=== PATIENT | male | born 1945 | race Caucasian/White ===

== ENCOUNTER 2022-05-19 09:05 | Inpatient (IN) | payer BC, MEDICARE, OTHER ==
[2022-05-19] MEDS ORDERED: Ondansetron PF 4 MG/2 ML Vial IVP PRN (11:59)
[2022-05-19] MEDS ORDERED: Ondansetron ODT 4 MG TAB PO PRN (11:59)
[2022-05-19] MEDS ORDERED: Acetaminophen 325 MG TAB PO PRN (11:59)
[2022-05-19 13:16] LABS: Troponin I 0.082 ng/mL (< 0.028)
[2022-05-19] MEDS ORDERED: Furosemide 40 MG/4 ML VIAL SLOW IVP SCH (15:30)
[2022-05-19] MEDS ORDERED: Dextrose 5% in Water 1,000 ML IV PRN (15:48)
[2022-05-19] MEDS ORDERED: Dextrose 50% Abboject 50 ML SYRINGE SLOW IVP PRN (15:48)
[2022-05-19] MEDS ORDERED: HumaLOG 300 UNITS/3 ML VIAL SC PRN (15:48)
[2022-05-19 16:14] LABS: Troponin I 0.072 ng/mL (< 0.028)
[2022-05-19 18:05] VITALS: BMI 35.6
[2022-05-19] MEDS: Enoxaparin Sodium 120 MG/0.8 ML SYRINGE SC SCH (21:02)
[2022-05-20 04:10] LABS: #Basophils 0.1 10x3/uL (0.0-0.2); #Eosinphils 0.2 10x3/uL (0.0-0.5); #Monocytes 0.9 10x3/uL (0.0-1.1); #Neutrophils 5.3 10x3/uL (1.5-8.4); %Basophils 0.7 % (0.0-2.0); %Eosinophils 2.7 % (0.0-6.0); %Neutrophils 60.9 % (40.0-75.0); Hemoglobin 14.2 g/dL (13.5-17.5); Mean Corpuscular HGB CONC 31.8 g/dL (32.0-36.0); Mean Corpuscular Hemoglobin 31.5 pg (27.0-33.0); Mean Corpuscular Volume 98.9 fl (81.2-95.1); Mean Platelet Volume 9.8 fl (7.4-10.4); Platelet Count 182 10x3/uL (150-450); RBC Distribution Width 13.9 % (11.5-14.5); Red Blood Cell (RBC) Count 4.51 10x6/uL (4.32-5.72); White Blood Cell (WBC) Count 8.7 10x3/uL (3.5-10.5)
[2022-05-20 04:21] LABS: Anion Gap 11 mmol/L (10-20); BUN (Urea Nitrogen) 17 mg/dL (8.4-25.7); Calc. Creatinine Clearance 120 mL/min (70-130); Calcium 8.7 mg/dL (7.8-10.44); Carbon Dioxide 30 mmol/L (23-31); Chloride 107 mmol/L (98-107); Estimated GFR 89; Glucose 131 mg/dL (83-110); Potassium 4.3 mmol/L (3.5-5.1); Sodium 144 mmol/L (136-145)
[2022-05-20] MEDS: Enoxaparin Sodium 120 MG/0.8 ML SYRINGE SC SCH (08:53)
[2022-05-20] MEDS: Lisinopril 20 MG TAB PO SCH (10:22)
[2022-05-20] MEDS ORDERED: Carvedilol 6.25 MG TAB PO SCH (10:30)
[2022-05-20] MEDS: HumaLOG 300 UNITS/3 ML VIAL SC PRN (11:23)
[2022-05-20] MEDS: Carvedilol 6.25 MG TAB PO SCH (16:24)
[2022-05-20] MEDS: Rosuvastatin 20 MG TAB PO SCH (22:00)
[2022-05-20] MEDS: Carbidopa/Levodopa 25-100 mg Tablet PO SCH (22:00)
[2022-05-20] MEDS: DULoxetine 30 MG CAP PO SCH (22:00)
[2022-05-20] MEDS: Apixaban 5 MG TAB PO SCH (22:00)
[2022-05-21 05:52] LABS: Anion Gap 14 mmol/L (10-20); BUN (Urea Nitrogen) 12 mg/dL (8.4-25.7); Calc. Creatinine Clearance 135 mL/min (70-130); Calcium 8.7 mg/dL (7.8-10.44); Carbon Dioxide 30 mmol/L (23-31); Chloride 106 mmol/L (98-107); Estimated GFR 92; Glucose 129 mg/dL (83-110); Magnesium 2.1 mg/dL (1.6-2.6); Potassium 4.7 mmol/L (3.5-5.1); Sodium 145 mmol/L (136-145)
[2022-05-21 06:01] LABS: #Basophils 0.1 10x3/uL (0.0-0.2); #Eosinphils 0.3 10x3/uL (0.0-0.5); #Monocytes 0.8 10x3/uL (0.0-1.1); #Neutrophils 4.9 10x3/uL (1.5-8.4); %Basophils 0.6 % (0.0-2.0); %Eosinophils 3.2 % (0.0-6.0); %Lymphocytes 22.2 % (18.0-47.0); %Monocytes 10.1 % (0.0-10.0); %Neutrophils 63.3 % (40.0-75.0); Mean Corpuscular HGB CONC 31.4 g/dL (32.0-36.0); Mean Corpuscular Hemoglobin 31.3 pg (27.0-33.0); Mean Corpuscular Volume 99.8 fl (81.2-95.1); Mean Platelet Volume 9.6 fl (7.4-10.4); Platelet Count 162 10x3/uL (150-450); RBC Distribution Width 13.3 % (11.5-14.5); Red Blood Cell (RBC) Count 4.47 10x6/uL (4.32-5.72); White Blood Cell (WBC) Count 7.7 10x3/uL (3.5-10.5)
[2022-05-21] MEDS: Carbidopa/Levodopa 25-100 mg Tablet PO SCH ×4 (08:38→21:23)
[2022-05-21] MEDS: DULoxetine 30 MG CAP PO SCH ×2 (08:38→21:24)
[2022-05-21] MEDS: Finasteride 5 MG TAB PO SCH (08:38)
[2022-05-21] MEDS: Potassium Chloride 10 MEQ TAB PO SCH (08:38)
[2022-05-21] MEDS: Apixaban 5 MG TAB PO SCH ×2 (08:38→21:24)
[2022-05-21] MEDS: metFORMIN 500 MG TAB PO SCH ×2 (08:38→16:47)
[2022-05-21] MEDS: Lisinopril 20 MG TAB PO SCH (08:38)
[2022-05-21] MEDS: Carvedilol 6.25 MG TAB PO SCH ×2 (08:38→16:47)
[2022-05-21] MEDS: Levothyroxine Sodium 50 MCG TAB PO SCH (08:38)
[2022-05-21] MEDS ORDERED: Furosemide 20 MG TAB PO SCH (09:00)
[2022-05-21] MEDS: HumaLOG 300 UNITS/3 ML VIAL SC PRN (11:35)
[2022-05-21] MEDS ORDERED: Furosemide 40 MG/4 ML VIAL SLOW IVP SCH (12:00)
[2022-05-21 12:31] LABS: Hemoglobin A1c 6.9 % (4.0-6.0)
[2022-05-21] MEDS: Rosuvastatin 20 MG TAB PO SCH (21:23)
[2022-05-22 05:38] LABS: #Eosinphils 0.3 10x3/uL (0.0-0.5); #Monocytes 0.9 10x3/uL (0.0-1.1); %Basophils 0.4 % (0.0-2.0); %Eosinophils 3.1 % (0.0-6.0); %Lymphocytes 22.2 % (18.0-47.0); %Monocytes 10.7 % (0.0-10.0); Hemoglobin 13.5 g/dL (13.5-17.5); Mean Corpuscular HGB CONC 31.7 g/dL (32.0-36.0); Mean Corpuscular Hemoglobin 31.5 pg (27.0-33.0); Mean Corpuscular Volume 99.3 fl (81.2-95.1); Mean Platelet Volume 10.2 fl (7.4-10.4); Platelet Count 165 10x3/uL (150-450); RBC Distribution Width 13.6 % (11.5-14.5); Red Blood Cell (RBC) Count 4.29 10x6/uL (4.32-5.72); White Blood Cell (WBC) Count 7.9 10x3/uL (3.5-10.5)
[2022-05-22 06:07] LABS: Anion Gap 13 mmol/L (10-20); BUN (Urea Nitrogen) 14 mg/dL (8.4-25.7); Calc. Creatinine Clearance 127 mL/min (70-130); Calcium 8.8 mg/dL (7.8-10.44); Carbon Dioxide 34 mmol/L (23-31); Chloride 101 mmol/L (98-107); Estimated GFR 90; Glucose 139 mg/dL (83-110); Sodium 144 mmol/L (136-145)
[2022-05-22] MEDS: Carvedilol 6.25 MG TAB PO SCH ×2 (06:36→16:39)
[2022-05-22] MEDS: Lisinopril 20 MG TAB PO SCH (06:36)
[2022-05-22] MEDS: metFORMIN 500 MG TAB PO SCH ×2 (08:43→16:39)
[2022-05-22] MEDS: Apixaban 5 MG TAB PO SCH ×2 (08:43→21:30)
[2022-05-22] MEDS: Carbidopa/Levodopa 25-100 mg Tablet PO SCH ×4 (08:43→21:30)
[2022-05-22] MEDS: Levothyroxine Sodium 50 MCG TAB PO SCH (08:43)
[2022-05-22] MEDS: Potassium Chloride 10 MEQ TAB PO SCH (08:43)
[2022-05-22] MEDS: Finasteride 5 MG TAB PO SCH (08:43)
[2022-05-22] MEDS: DULoxetine 30 MG CAP PO SCH ×2 (08:43→16:39)
[2022-05-22] MEDS ORDERED: Furosemide 40 MG/4 ML VIAL SLOW IVP SCH ×2 (09:00→18:00)
[2022-05-22] MEDS ORDERED: PROPOFOL 20 ML ONE (13:14)
[2022-05-22] MEDS: Dronedarone HCl 400 MG TAB PO SCH (16:39)
[2022-05-22] MEDS: Rosuvastatin 20 MG TAB PO SCH (21:30)
[2022-05-23 04:14] LABS: #Eosinphils 0.2 10x3/uL (0.0-0.5); #Monocytes 0.8 10x3/uL (0.0-1.1); #Neutrophils 4.5 10x3/uL (1.5-8.4); %Basophils 0.4 % (0.0-2.0); %Eosinophils 2.8 % (0.0-6.0); %Lymphocytes 22.4 % (18.0-47.0); %Monocytes 11.5 % (0.0-10.0); %Neutrophils 62.3 % (40.0-75.0); Hemoglobin 13.8 g/dL (13.5-17.5); Mean Corpuscular HGB CONC 31.2 g/dL (32.0-36.0); Mean Corpuscular Hemoglobin 30.9 pg (27.0-33.0); Mean Corpuscular Volume 99.3 fl (81.2-95.1); Platelet Count 151 10x3/uL (150-450); RBC Distribution Width 13.4 % (11.5-14.5); Red Blood Cell (RBC) Count 4.46 10x6/uL (4.32-5.72); White Blood Cell (WBC) Count 7.2 10x3/uL (3.5-10.5)
[2022-05-23 04:51] LABS: Anion Gap 14 mmol/L (10-20); BUN (Urea Nitrogen) 19 mg/dL (8.4-25.7); Calc. Creatinine Clearance 96 mL/min (70-130); Calcium 8.7 mg/dL (7.8-10.44); Carbon Dioxide 33 mmol/L (23-31); Chloride 100 mmol/L (98-107); Estimated GFR 70; Glucose 110 mg/dL (83-110); Magnesium 1.9 mg/dL (1.6-2.6); Potassium 4.7 mmol/L (3.5-5.1); Sodium 142 mmol/L (136-145)
[2022-05-23] MEDS ORDERED: Furosemide 40 MG/4 ML VIAL SLOW IVP SCH (06:00)
[2022-05-23] MEDS ORDERED: Magnesium 2 GM/50 ML(in water) 2 GM in Premix Bag 1 BAG IVPB SCH (06:45)
[2022-05-23 07:42] VITALS: TEMP 97.4
[2022-05-23] MEDS: metFORMIN 500 MG TAB PO SCH (08:55)
[2022-05-23] MEDS: DULoxetine 30 MG CAP PO SCH (08:55)
[2022-05-23] MEDS: Potassium Chloride 10 MEQ TAB PO SCH (08:55)
[2022-05-23] MEDS: Furosemide 20 MG TAB PO SCH ×2 (08:55→13:06)
[2022-05-23] MEDS: Apixaban 5 MG TAB PO SCH (08:55)
[2022-05-23] MEDS: Carvedilol 6.25 MG TAB PO SCH (08:55)
[2022-05-23] MEDS: Lisinopril 20 MG TAB PO SCH (08:55)
[2022-05-23] MEDS: Carbidopa/Levodopa 25-100 mg Tablet PO SCH ×2 (08:55→13:07)
[2022-05-23] MEDS: Levothyroxine Sodium 50 MCG TAB PO SCH (08:56)
[2022-05-23] MEDS: Finasteride 5 MG TAB PO SCH (08:56)
[2022-05-23] MEDS: Dronedarone HCl 400 MG TAB PO SCH (10:41)
[2022-05-23 13:03] VITALS: BP 110/70
== END 2022-05-23 14:27 | disposition home or self-care (01) | DRG 308 ==
LOC: CSHERS 09:05 → CSHERHOLD 12:06 → INTOOBSV 12:06 → CSHTELE 17:15 → OBSVTOIN 05-22 09:10
PROVIDERS: ADMIT Nurse Practitioner Family; ATTEND Family Medicine
PROC: 5A2204Z Restoration of Cardiac Rhythm, Single (ICD-10-PCS; principal; 2022-05-22)
DX: I48.19 Other persistent atrial fibrillation (principal); J96.01 Acute respiratory failure with hypoxia; I25.10 Atherosclerotic heart disease of native coronary artery without angina pectoris; G20 Parkinson's disease; I11.0 Hypertensive heart disease with heart failure; E11.9 Type 2 diabetes mellitus without complications; N40.0 Benign prostatic hyperplasia without lower urinary tract symptoms; E03.9 Hypothyroidism, unspecified; I50.9 Heart failure, unspecified; Z88.1 Allergy status to other antibiotic agents; Z79.82 Long term (current) use of aspirin; Z79.899 Other long term (current) drug therapy; Z79.4 Long term (current) use of insulin; Z95.1 Presence of aortocoronary bypass graft; Z90.49 Acquired absence of other specified parts of digestive tract; Z79.84 Long term (current) use of oral hypoglycemic drugs
CPT/HCPCS: 36415; 36416; 71045; 80048; 82553; 83036; 83735; 83880; 84443; 85025; 85379; 92960; 93005; 93010; 93312; 94640; 94760; 96372; 96374; 96376; G0378; J1650; J1815; J1940; J2704; J3475; J7620

== ENCOUNTER 2023-01-22 17:28 | Inpatient (IN) | payer BC, MEDICARE ==
[~2023-01-22 17:28] MED LIST: Iopamidol 300 61% 100 ML VIAL FS ONE
[2023-01-22 18:31] LABS: ALT (SGPT) Less than 6 U/L (8-55); AST (SGOT) 18 U/L (5-34); Albumin 3.6 g/dL (3.4-4.8); Alkaline Phosphatase 36 U/L (40-110); Anion Gap 12 mmol/L (10-20); BUN (Urea Nitrogen) 19 mg/dL (8.4-25.7); Bilirubin, Total 0.3 mg/dL (0.2-1.2); Calc. Creatinine Clearance 0 mL/min (70-130); Carbon Dioxide 29 mmol/L (23-31); Chloride 107 mmol/L (98-107); Estimated GFR 58; Glucose 96 mg/dL (83-110); Potassium 4.7 mmol/L (3.5-5.1); Protein, Total 5.6 g/dL (5.8-8.1); Sodium 143 mmol/L (136-145)
[2023-01-22 18:32] LABS: Mean Corpuscular HGB CONC 30.1 g/dL (32.0-36.0); Mean Corpuscular Hemoglobin 29.7 pg (27.0-33.0); Mean Corpuscular Volume 98.7 fl (81.2-95.1); Mean Platelet Volume 10.1 fl (7.4-10.4); Platelet Count 254 10x3/uL (150-450); RBC Distribution Width 13.8 % (11.5-14.5); Red Blood Cell (RBC) Count 3.03 10x6/uL (4.32-5.72)
[2023-01-22 18:33] LABS: Manual Diff?? YES
[2023-01-22 18:34] LABS: MDiff Complete? YES
[2023-01-22 18:36] LABS: Eosinophils 1 % (0-10); Lymphocytes 30 % (21-51); Monocytes 9 % (0-10); Neutrophil 59 % (42-75); Reactive Lymphocytes 1 % (0-10)
[2023-01-22 18:37] LABS: Platelet Morphology Comment Appears Adequate
[2023-01-22] MEDS ORDERED: Pantoprazole 40 MG VIAL ONE ×2 (18:37→23:59)
[2023-01-22 18:38] LABS: Hypochromia SLIGHT = 6-15 cells (100X) (0-5/hpf)
[2023-01-22] MEDS ORDERED: Senokot S 8.6-50 MG TAB PO PRN (21:02)
[2023-01-22] MEDS ORDERED: HYDROcodone/Acetaminophen 5/325 mg Tablet PO PRN (21:02)
[2023-01-22] MEDS ORDERED: Ondansetron PF 4 MG/2 ML Vial IVP PRN (21:02)
[2023-01-22] MEDS ORDERED: Calcium Carbonate 500 MG ChewTAB PO PRN (21:02)
[2023-01-22] MEDS ORDERED: Acetaminophen 325 MG TAB PO PRN (21:02)
[2023-01-22] MEDS ORDERED: HumaLOG 300 UNITS/3 ML VIAL SC PRN (21:08)
[2023-01-22] MEDS ORDERED: Dextrose 5% in Water 1,000 ML IV PRN (21:08)
[2023-01-22] MEDS ORDERED: Dextrose 50% Abboject 50 ML SYRINGE SLOW IVP PRN (21:08)
[2023-01-22] MEDS: Lactated Ringer's 1,000 ML IV SCH (21:34)
[2023-01-23] MEDS: Pantoprazole 80 MG in Sodium Chloride 0.9% 100 ML IVPB SCH ×2 (00:06→14:36)
[2023-01-23 04:19] LABS: #Eosinphils 0.1 10x3/uL (0.0-0.5); #Monocytes 0.8 10x3/uL (0.0-1.1); #Neutrophils 3.6 10x3/uL (1.5-8.4); %Basophils 0.3 % (0.0-2.0); %Eosinophils 2.1 % (0.0-6.0); %Lymphocytes 33.1 % (18.0-47.0); %Monocytes 11.4 % (0.0-10.0); %Neutrophils 52.7 % (40.0-75.0); Mean Corpuscular HGB CONC 30.2 g/dL (32.0-36.0); Mean Corpuscular Volume 99.3 fl (81.2-95.1); Mean Platelet Volume 10.4 fl (7.4-10.4); Platelet Count 204 10x3/uL (150-450); RBC Distribution Width 13.7 % (11.5-14.5); Red Blood Cell (RBC) Count 2.67 10x6/uL (4.32-5.72); White Blood Cell (WBC) Count 6.8 10x3/uL (3.5-10.5)
[2023-01-23 04:41] LABS: Anion Gap 15 mmol/L (10-20); BUN (Urea Nitrogen) 17 mg/dL (8.4-25.7); Calc. Creatinine Clearance 0 mL/min (70-130); Calcium 8.5 mg/dL (7.8-10.44); Carbon Dioxide 27 mmol/L (23-31); Chloride 107 mmol/L (98-107); Estimated GFR 62; Glucose 131 mg/dL (83-110); Iron 14 ug/dL (65-175); Iron Binding Capacity, Total 360 mcg/dL (261-462); Potassium 4.7 mmol/L (3.5-5.1); Sodium 144 mmol/L (136-145)
[2023-01-23 04:57] LABS: Ferritin 9.23 ng/mL (22-322)
[2023-01-23 04:58] VITALS: BMI 34.0
[2023-01-23] MEDS: Levothyroxine Sodium 50 MCG TAB PO SCH (05:19)
[2023-01-23 08:56] LABS: #Eosinphils 0.1 10x3/uL (0.0-0.5); #Monocytes 0.7 10x3/uL (0.0-1.1); #Neutrophils 4.3 10x3/uL (1.5-8.4); %Basophils 0.3 % (0.0-2.0); %Eosinophils 1.6 % (0.0-6.0); %Lymphocytes 30.9 % (18.0-47.0); %Monocytes 9.2 % (0.0-10.0); %Neutrophils 57.6 % (40.0-75.0); Hemoglobin 8.1 g/dL (13.5-17.5); Mean Corpuscular HGB CONC 29.9 g/dL (32.0-36.0); Mean Corpuscular Hemoglobin 29.9 pg (27.0-33.0); Mean Platelet Volume 10.5 fl (7.4-10.4); Platelet Count 213 10x3/uL (150-450); RBC Distribution Width 13.7 % (11.5-14.5); Red Blood Cell (RBC) Count 2.71 10x6/uL (4.32-5.72); White Blood Cell (WBC) Count 7.4 10x3/uL (3.5-10.5)
[2023-01-23 09:46] LABS: Platelet Morphology Comment Appears Adequate
[2023-01-23 09:49] LABS: Hypochromia SLIGHT = 6-15 cells (100X) (0-5/hpf)
[2023-01-23] MEDS: DULoxetine 30 MG CAP PO SCH ×2 (10:03→21:14)
[2023-01-23] MEDS: Finasteride 5 MG TAB PO SCH (10:04)
[2023-01-23] MEDS: Fenofibrate Nanocrystallized 145 MG TAB PO SCH (10:04)
[2023-01-23] MEDS: Carbidopa/Levodopa 25-100 mg Tablet PO SCH ×3 (10:04→21:15)
[2023-01-23] MEDS: Dronedarone HCl 400 MG TAB PO SCH ×2 (10:04→18:55)
[2023-01-23 12:01] LABS: Hemoglobin 8.6 g/dL (13.5-17.5); Platelet Count 195 10x3/uL (150-450)
[2023-01-23 14:25] LABS: #Eosinphils 0.1 10x3/uL (0.0-0.5); #Monocytes 0.6 10x3/uL (0.0-1.1); #Neutrophils 4.6 10x3/uL (1.5-8.4); %Basophils 0.3 % (0.0-2.0); %Eosinophils 1.2 % (0.0-6.0); %Lymphocytes 23.9 % (18.0-47.0); %Monocytes 8.6 % (0.0-10.0); %Neutrophils 65.6 % (40.0-75.0); Hemoglobin 8.5 g/dL (13.5-17.5); Mean Corpuscular HGB CONC 29.8 g/dL (32.0-36.0); Mean Corpuscular Hemoglobin 29.8 pg (27.0-33.0); Mean Platelet Volume 9.9 fl (7.4-10.4); Platelet Count 200 10x3/uL (150-450); RBC Distribution Width 13.4 % (11.5-14.5); Red Blood Cell (RBC) Count 2.85 10x6/uL (4.32-5.72); White Blood Cell (WBC) Count 6.9 10x3/uL (3.5-10.5)
[2023-01-23] MEDS: Lactated Ringer's 1,000 ML IV SCH (14:32)
[2023-01-23 14:59] LABS: Platelet Morphology Comment Appears Adequate; RBC Morphology Normal
[2023-01-23] MEDS ORDERED: GoLYTELY 4,000 ml Bottle PO SCH (15:30)
[2023-01-23] MEDS ORDERED: Carbidopa/Levodopa 25-100 mg Tablet PO SCH (18:15)
[2023-01-23] MEDS ORDERED: Iron, Sodium Ferric Gluconate 250 MG in Sodium Chloride 0.9% 250 ML 250 ML IVPB SCH (18:15)
[2023-01-23 20:53] LABS: #Eosinphils 0.1 10x3/uL (0.0-0.5); #Monocytes 0.6 10x3/uL (0.0-1.1); #Neutrophils 4.1 10x3/uL (1.5-8.4); %Basophils 0.3 % (0.0-2.0); %Eosinophils 1.8 % (0.0-6.0); %Lymphocytes 26.5 % (18.0-47.0); %Monocytes 8.3 % (0.0-10.0); %Neutrophils 62.6 % (40.0-75.0); Hemoglobin 9.5 g/dL (13.5-17.5); Mean Corpuscular HGB CONC 29.8 g/dL (32.0-36.0); Mean Corpuscular Hemoglobin 29.7 pg (27.0-33.0); Mean Corpuscular Volume 99.7 fl (81.2-95.1); Mean Platelet Volume 10.2 fl (7.4-10.4); Platelet Count 232 10x3/uL (150-450); RBC Distribution Width 13.5 % (11.5-14.5); White Blood Cell (WBC) Count 6.6 10x3/uL (3.5-10.5)
[2023-01-23] MEDS: Rosuvastatin 20 MG TAB PO SCH (21:14)
[2023-01-24] MEDS: Pantoprazole 80 MG in Sodium Chloride 0.9% 100 ML IVPB SCH (02:23)
[2023-01-24] MEDS: Lactated Ringer's 1,000 ML IV SCH (05:32)
[2023-01-24] MEDS: Levothyroxine Sodium 50 MCG TAB PO SCH (05:39)
[2023-01-24 06:13] LABS: Anion Gap 14 mmol/L (10-20); BUN (Urea Nitrogen) 9 mg/dL (8.4-25.7); Calc. Creatinine Clearance 117 mL/min (70-130); Calcium 8.5 mg/dL (7.8-10.44); Carbon Dioxide 29 mmol/L (23-31); Chloride 106 mmol/L (98-107); Estimated GFR 89; Glucose 105 mg/dL (83-110); Potassium 4.6 mmol/L (3.5-5.1); Sodium 144 mmol/L (136-145)
[2023-01-24] MEDS: DULoxetine 30 MG CAP PO SCH ×2 (08:23→22:47)
[2023-01-24] MEDS: Dronedarone HCl 400 MG TAB PO SCH ×2 (08:23→16:49)
[2023-01-24] MEDS: Finasteride 5 MG TAB PO SCH (08:23)
[2023-01-24] MEDS: Carbidopa/Levodopa 25-100 mg Tablet PO SCH ×4 (08:24→22:47)
[2023-01-24] MEDS: Fenofibrate Nanocrystallized 145 MG TAB PO SCH (08:24)
[2023-01-24] MEDS: Rosuvastatin 20 MG TAB PO SCH (22:46)
[2023-01-25 05:24] LABS: Hemoglobin 8.1 g/dL (13.5-17.5); Mean Corpuscular HGB CONC 29.6 g/dL (32.0-36.0); Mean Corpuscular Hemoglobin 29.5 pg (27.0-33.0); Mean Corpuscular Volume 99.6 fl (81.2-95.1); Mean Platelet Volume 10.1 fl (7.4-10.4); Platelet Count 177 10x3/uL (150-450); RBC Distribution Width 13.5 % (11.5-14.5); Red Blood Cell (RBC) Count 2.75 10x6/uL (4.32-5.72); White Blood Cell (WBC) Count 6.7 10x3/uL (3.5-10.5)
[2023-01-25] MEDS: Levothyroxine Sodium 50 MCG TAB PO SCH (06:53)
[2023-01-25] MEDS: DULoxetine 30 MG CAP PO SCH (09:04)
[2023-01-25] MEDS: Finasteride 5 MG TAB PO SCH (09:04)
[2023-01-25] MEDS: Dronedarone HCl 400 MG TAB PO SCH (09:04)
[2023-01-25] MEDS: Carbidopa/Levodopa 25-100 mg Tablet PO SCH ×2 (09:04→13:56)
[2023-01-25] MEDS: Fenofibrate Nanocrystallized 145 MG TAB PO SCH (09:04)
[2023-01-25 12:36] VITALS: BP 126/76; TEMP 98.8
== END 2023-01-25 14:27 | disposition home or self-care (01) | DRG 378 ==
LOC: CSHERS 17:28 → CSHERHOLD 21:11 → CSHTELE 01-23 04:38
PROVIDERS: ADMIT Student in an Organized Health Care Education/Training Program; ATTEND Internal Medicine
PROC: 0DB68ZX Excision of Stomach, Via Natural or Artificial Opening Endoscopic, Diagnostic (ICD-10-PCS; principal; 2023-01-24)
PROC: 0DBN8ZZ Excision of Sigmoid Colon, Via Natural or Artificial Opening Endoscopic (ICD-10-PCS; 2023-01-24)
DX: K25.4 Chronic or unspecified gastric ulcer with hemorrhage (principal); D62 Acute posthemorrhagic anemia; K29.81 Duodenitis with bleeding; D12.5 Benign neoplasm of sigmoid colon; I48.0 Paroxysmal atrial fibrillation; R53.1 Weakness; I10 Essential (primary) hypertension; E78.5 Hyperlipidemia, unspecified; I25.10 Atherosclerotic heart disease of native coronary artery without angina pectoris; G20 Parkinson's disease; D50.9 Iron deficiency anemia, unspecified; N40.0 Benign prostatic hyperplasia without lower urinary tract symptoms; E11.9 Type 2 diabetes mellitus without complications; M19.90 Unspecified osteoarthritis, unspecified site; G47.33 Obstructive sleep apnea (adult) (pediatric); Z90.89 Acquired absence of other organs; Z98.890 Other specified postprocedural states; Z79.01 Long term (current) use of anticoagulants; Z79.82 Long term (current) use of aspirin; Z88.8 Allergy status to other drugs, medicaments and biological substances; Z79.84 Long term (current) use of oral hypoglycemic drugs; Z95.1 Presence of aortocoronary bypass graft; Z79.890 Hormone replacement therapy; Z79.899 Other long term (current) drug therapy; Z90.49 Acquired absence of other specified parts of digestive tract; Z98.49 Cataract extraction status, unspecified eye; Z87.891 Personal history of nicotine dependence
CPT/HCPCS: 36415; 36416; 70450; 71045; 74177; 80048; 80053; 82274; 82607; 82728; 83540; 83550; 83880; 84484; 85025; 85027; 86850; 86900; 86901; 88305; 93005; 94660; 94760; 96365; C9113; J1815; J2916; J3490; J7050; J7120; Q9967

== ENCOUNTER 2023-02-05 16:28 | Inpatient (IN) | payer BC, MEDICARE ==
[2023-02-05 17:08] LABS: #Monocytes 0.9 10x3/uL (0.0-1.1); #Neutrophils 5.3 10x3/uL (1.5-8.4); %Basophils 0.3 % (0.0-2.0); %Eosinophils 0.1 % (0.0-6.0); %Lymphocytes 16.6 % (18.0-47.0); %Monocytes 12.4 % (0.0-10.0); %Neutrophils 70.2 % (40.0-75.0); Hemoglobin 9.2 g/dL (13.5-17.5); Mean Corpuscular HGB CONC 28.7 g/dL (32.0-36.0); Mean Corpuscular Volume 101.3 fl (81.2-95.1); Mean Platelet Volume 10.5 fl (7.4-10.4); Platelet Count 239 10x3/uL (150-450); RBC Distribution Width 14.4 % (11.5-14.5); Red Blood Cell (RBC) Count 3.17 10x6/uL (4.32-5.72); White Blood Cell (WBC) Count 7.6 10x3/uL (3.5-10.5)
[2023-02-05 17:18] LABS: ALT (SGPT) 7 U/L (8-55); AST (SGOT) 30 U/L (5-34); Albumin 3.6 g/dL (3.4-4.8); Alkaline Phosphatase 54 U/L (40-110); Anion Gap 13 mmol/L (10-20); BUN (Urea Nitrogen) 22 mg/dL (8.4-25.7); Bilirubin, Total 0.3 mg/dL (0.2-1.2); Calc. Creatinine Clearance 0 mL/min (70-130); Calcium 8.6 mg/dL (7.8-10.44); Carbon Dioxide 30 mmol/L (23-31); Chloride 104 mmol/L (98-107); Estimated GFR 53; Glucose 142 mg/dL (83-110); Potassium 4.8 mmol/L (3.5-5.1); Protein, Total 5.6 g/dL (5.8-8.1); Sodium 142 mmol/L (136-145)
[2023-02-05] MEDS ORDERED: cefTRIAXone\\ROCEPHIN 1 GM in Sodium Chloride 0.9% 100 ML IVPB SCH (19:45)
[2023-02-05] MEDS ORDERED: Carbidopa/Levodopa 25-100 mg Tablet PO SCH ×2 (19:45→23:00)
[2023-02-05] MEDS ORDERED: Dextrose 50% Abboject 50 ML SYRINGE SLOW IVP PRN (19:52)
[2023-02-05] MEDS ORDERED: Dextrose 5% in Water 1,000 ML IV PRN (19:52)
[2023-02-05] MEDS ORDERED: HumaLOG 300 UNITS/3 ML VIAL SC PRN (19:52)
[2023-02-05] MEDS ORDERED: Acetaminophen 650 MG Suppository PR PRN (20:18)
[2023-02-05] MEDS ORDERED: Bisacodyl 5 MG TAB PO PRN (20:18)
[2023-02-05] MEDS ORDERED: Ondansetron ODT 4 MG TAB PO PRN (20:18)
[2023-02-05] MEDS ORDERED: Benzonatate 100 MG CAP PO PRN (20:20)
[2023-02-05] MEDS ORDERED: cefTRIAXone (ROCEPHIN) 1 GM VIAL ONE (20:39)
[2023-02-05 20:57] LABS: Bilirubin Neg (Negative); Blood, Urine Negative (Negative); Clarity Clear (Clear); Glucose, Urine (Dipstick) Normal (Negative); Ketone, Urine Negative (Negative); Leukocyte 25 (Negative); Nitrite Negative (Negative); Protein, Urine (Dipstick) 100 mg/dl (Neg-Trace); Specific Gravity, Urine 1.025 (1.005-1.030); Urobilinogen Normal mg/dL (Less than 2)
[2023-02-05] MEDS ORDERED: Apixaban 5 MG TAB ONE (20:59)
[2023-02-05] MEDS ORDERED: Apixaban 5 MG TAB PO SCH (21:00)
[2023-02-05] MEDS ORDERED: Dronedarone HCl 400 MG TAB PO SCH (21:00)
[2023-02-05 21:16] LABS: Bacteria/HPF 2+ HPF (None Seen); RBC/HPF 0-3 HPF (0-3); Squamous Epithelial 0-3 HPF (0-3); WBC/HPF 0-3 HPF (0-3)
[2023-02-05] MEDS: DULoxetine 30 MG CAP PO SCH (22:08)
[2023-02-05] MEDS: Doxycycline 100 MG in Sodium Chloride 0.9% 100 ML IVPB SCH (22:08)
[2023-02-05] MEDS: Rosuvastatin 20 MG TAB PO SCH (22:09)
[2023-02-05] MEDS ORDERED: Doxepin HCl 10 MG CAP PO PRN (22:22)
[2023-02-05 22:33] LABS: Actual Bicarbonate (HCO3a) 30.4 mEq/L (22-28); Base Excess (BEa) 0.2 mEq/L (-2.0 to +3.0); CO2 Tension 88.8 mmHg (35.0-45.0); Calcium, Ionized (arterial) 1.23 mmol/L (1.12-1.30); Critical Notified By: CP.PH; O2 Tension (PaO2), arterial 72.3 mmHg (> 70.0); Potassium - ABG Lab 4.9 mmol/L (3.70-5.30); Puncture Site RRA; RapidComm Collect By CP.PH; pH, Arterial 7.15 (7.35-7.45)
[2023-02-05] MEDS: Lactated Ringer's 500 ML IV SCH (23:29)
[2023-02-06 00:30] LABS: Actual Bicarbonate (HCO3v) 26 mEq/L (22-28); Base Excess -2.8 mEq/L (-2 - +2); Calcium, Ionized (venous) 1.17 mmol/L (1.16-1.32); Chloride (VBG) 100 mmol/L (98-106); Critical Notified By: CP.PH; Hemoglobin (Hb) 9.9 g/dL (12.6-17.4); Potassium (VBG) 5.24 mmol/L (3.70-5.30); Puncture Site Other Site; Sodium 143.8 mmol/L (133-146)
[2023-02-06 03:30] LABS: #Monocytes 1.2 10x3/uL (0.0-1.1); #Neutrophils 5.1 10x3/uL (1.5-8.4); %Basophils 0.2 % (0.0-2.0); %Eosinophils 0.2 % (0.0-6.0); %Monocytes 14.7 % (0.0-10.0); %Neutrophils 63.2 % (40.0-75.0); Mean Corpuscular Hemoglobin 28.7 pg (27.0-33.0); Mean Corpuscular Volume 102.2 fl (81.2-95.1); Mean Platelet Volume 10.7 fl (7.4-10.4); Platelet Count 201 10x3/uL (150-450); RBC Distribution Width 14.7 % (11.5-14.5); Red Blood Cell (RBC) Count 3.14 10x6/uL (4.32-5.72); White Blood Cell (WBC) Count 8.1 10x3/uL (3.5-10.5)
[2023-02-06 03:39] LABS: Anion Gap 15 mmol/L (10-20); BUN (Urea Nitrogen) 19 mg/dL (8.4-25.7); Calc. Creatinine Clearance 94 mL/min (70-130); Calcium 8.2 mg/dL (7.8-10.44); Carbon Dioxide 27 mmol/L (23-31); Chloride 106 mmol/L (98-107); Estimated GFR 69; Glucose 105 mg/dL (83-110); Magnesium 2.2 mg/dL (1.6-2.6); Phosphorus 4.8 mg/dL (2.3-4.7); Potassium 5.3 mmol/L (3.5-5.1); Sodium 143 mmol/L (136-145)
[2023-02-06 05:19] LABS: SARS-CoV-2 NAA Rapid Test Not Detected (NotDetected)
[2023-02-06] MEDS: Levothyroxine Sodium 88 MCG TAB PO SCH (05:53)
[2023-02-06] MEDS ORDERED: Carvedilol 3.125 MG TAB ONE (07:15)
[2023-02-06] MEDS ORDERED: Carvedilol 3.125 MG TAB PO SCH (08:00)
[2023-02-06] MEDS: Lactated Ringer's 500 ML IV SCH ×2 (08:13→17:12)
[2023-02-06] MEDS ORDERED: Folic Acid 1 MG TAB ONE (08:25)
[2023-02-06] MEDS ORDERED: Pantoprazole 40 MG VIAL ONE (08:25)
[2023-02-06 08:27] LABS: #Monocytes 0.9 10x3/uL (0.0-1.1); #Neutrophils 4.4 10x3/uL (1.5-8.4); %Basophils 0.3 % (0.0-2.0); %Eosinophils 0.3 % (0.0-6.0); %Lymphocytes 22.1 % (18.0-47.0); %Monocytes 12.4 % (0.0-10.0); Hemoglobin 8.7 g/dL (13.5-17.5); Mean Corpuscular HGB CONC 28.7 g/dL (32.0-36.0); Mean Corpuscular Hemoglobin 29.2 pg (27.0-33.0); Mean Corpuscular Volume 101.7 fl (81.2-95.1); Mean Platelet Volume 10.4 fl (7.4-10.4); Platelet Count 216 10x3/uL (150-450); RBC Distribution Width 14.7 % (11.5-14.5); Red Blood Cell (RBC) Count 2.98 10x6/uL (4.32-5.72); White Blood Cell (WBC) Count 6.9 10x3/uL (3.5-10.5)
[2023-02-06 08:38] LABS: Anion Gap 12 mmol/L (10-20); BUN (Urea Nitrogen) 18 mg/dL (8.4-25.7); Calc. Creatinine Clearance 100 mL/min (70-130); Calcium 8.2 mg/dL (7.8-10.44); Carbon Dioxide 29 mmol/L (23-31); Chloride 106 mmol/L (98-107); Estimated GFR 74; Glucose 97 mg/dL (83-110); Potassium 4.8 mmol/L (3.5-5.1); Sodium 142 mmol/L (136-145)
[2023-02-06 08:40] LABS: INR-International Normal Ratio 1.1; PTT 31.6 sec (22.0-33.0); Prothrombin Time 11.8 sec (9.5-12.1)
[2023-02-06] MEDS: Fenofibrate Nanocrystallized 145 MG TAB PO SCH (09:08)
[2023-02-06] MEDS: Dronedarone HCl 400 MG TAB PO SCH ×2 (09:08→16:57)
[2023-02-06] MEDS: DULoxetine 30 MG CAP PO SCH ×2 (09:08→20:57)
[2023-02-06] MEDS: Folic Acid 1 MG TAB PO SCH (09:08)
[2023-02-06] MEDS: Doxycycline 100 MG in Sodium Chloride 0.9% 100 ML IVPB SCH ×2 (09:08→21:03)
[2023-02-06] MEDS: Finasteride 5 MG TAB PO SCH (09:08)
[2023-02-06] MEDS: Carbidopa/Levodopa 25-100 mg Tablet PO SCH ×4 (09:08→20:56)
[2023-02-06] MEDS: Pantoprazole 40 MG VIAL IVP SCH ×2 (09:09→20:58)
[2023-02-06 10:01] LABS: Actual Bicarbonate (HCO3v) 29 mEq/L (22-28); Base Excess 0.8 mEq/L (-2 - +2); Calcium, Ionized (venous) 1.18 mmol/L (1.16-1.32); Chloride (VBG) 101 mmol/L (98-106); Hemoglobin (Hb) 10.1 g/dL (12.6-17.4); Potassium (VBG) 4.77 mmol/L (3.70-5.30); Puncture Site Other Site; RapidComm Collect By CBN; pH (venous) 7.26 (7.32-7.43)
[2023-02-06] MEDS ORDERED: VANCOMYCIN 2 GRAM/400 ML BAG 2 GM in Premix Bag 1 BAG IVPB SCH (12:30)
[2023-02-06] MEDS ORDERED: Vancomycin 1 GM in Premix Bag 1 BAG IVPB SCH (12:30)
[2023-02-06] MEDS ORDERED: NOREPINEPHRINE 8 MG/250 ML-D5W 250 ML IVPB PRN (12:47)
[2023-02-06] MEDS ORDERED: NOREPINEPHRINE 8 MG/250 ML-D5W 250 ML IVPB SCH (13:00)
[2023-02-06] MEDS ORDERED: NOREPINEPHRINE 8 MG/250 ML-D5W 250 ML ONE (13:01)
[2023-02-06] MEDS ORDERED: Cefepime 2 GM VIAL ONE (13:01)
[2023-02-06] MEDS: Cefepime 2 GM in Sodium Chloride 0.9% 100 ML IVPB SCH (13:15)
[2023-02-06 14:18] LABS: Hemoglobin 9.2 g/dL (13.5-17.5); Platelet Count 229 10x3/uL (150-450)
[2023-02-06 14:28] LABS: Lactic Acid 0.7 mmol/L (0.5-2.2)
[2023-02-06 14:32] LABS: Anion Gap 11 mmol/L (10-20); BUN (Urea Nitrogen) 18 mg/dL (8.4-25.7); Calc. Creatinine Clearance 98 mL/min (70-130); Calcium 8.2 mg/dL (7.8-10.44); Carbon Dioxide 30 mmol/L (23-31); Chloride 105 mmol/L (98-107); Estimated GFR 72; Glucose 152 mg/dL (83-110); Sodium 141 mmol/L (136-145)
[2023-02-06] MEDS: Acetaminophen 325 MG TAB PO PRN ×2 (18:04→22:01)
[2023-02-06] MEDS: Rosuvastatin 20 MG TAB PO SCH (20:57)
[2023-02-06] MEDS: VANCOMYCIN 1.25 GM/250 ML BAG 1.25 GM in Premix Bag 1 BAG IVPB SCH (23:14)
[2023-02-06] MEDS: Lactated Ringer's 1,000 ML IV SCH (23:15)
[2023-02-07] MEDS ORDERED: Lorazepam 2 MG/ML VIAL SLOW IVP SCH (00:01)
[2023-02-07] MEDS: Cefepime 2 GM in Sodium Chloride 0.9% 100 ML IVPB SCH ×2 (02:34→11:26)
[2023-02-07] MEDS: Dexmedetomidine In 0.9 % NaCl 100 ML IVPB SCH ×2 (02:48→12:23)
[2023-02-07 03:48] LABS: Anion Gap 14 mmol/L (10-20); BUN (Urea Nitrogen) 16 mg/dL (8.4-25.7); Calc. Creatinine Clearance 100 mL/min (70-130); Carbon Dioxide 28 mmol/L (23-31); Chloride 104 mmol/L (98-107); Estimated GFR 74; Potassium 4.9 mmol/L (3.5-5.1); Sodium 141 mmol/L (136-145)
[2023-02-07 03:49] LABS: Albumin 3.2 g/dL (3.4-4.8); Bilirubin, Total 0.4 mg/dL (0.2-1.2); Calcium 7.9 mg/dL (7.6-10.4); Glucose 113 mg/dL (83-110); Protein, Total 5.1 g/dL (5.8-8.1)
[2023-02-07 03:52] LABS: ALT (SGPT) Less than 6 U/L (8-55); AST (SGOT) 26 U/L (5-34); Alkaline Phosphatase 51 U/L (40-110); Globulin 1.9 g/dL (2.4-3.5)
[2023-02-07 06:26] LABS: #Monocytes 0.8 10x3/uL (0.0-1.1); %Basophils 0.1 % (0.0-2.0); %Eosinophils 0.1 % (0.0-6.0); %Lymphocytes 15.4 % (18.0-47.0); %Monocytes 11.9 % (0.0-10.0); %Neutrophils 71.9 % (40.0-75.0); Hemoglobin 8.7 g/dL (13.5-17.5); Mean Corpuscular HGB CONC 28.3 g/dL (32.0-36.0); Mean Corpuscular Hemoglobin 28.7 pg (27.0-33.0); Mean Corpuscular Volume 101.3 fl (81.2-95.1); Mean Platelet Volume 10.2 fl (7.4-10.4); Platelet Count 226 10x3/uL (150-450); Red Blood Cell (RBC) Count 3.03 10x6/uL (4.32-5.72)
[2023-02-07] MEDS: Pantoprazole 40 MG VIAL IVP SCH (08:15)
[2023-02-07] MEDS: Doxycycline 100 MG in Sodium Chloride 0.9% 100 ML IVPB SCH (08:15)
[2023-02-07 08:39] LABS: Actual Bicarbonate (HCO3v) 30 mEq/L (22-28); Base Excess 3.3 mEq/L (-2 - +2); Calcium, Ionized (venous) 1.07 mmol/L (1.16-1.32); Chloride (VBG) 103 mmol/L (98-106); Critical Notified By: CP.PH; Hemoglobin (Hb) 9.7 g/dL (12.6-17.4); Potassium (VBG) 4.71 mmol/L (3.70-5.30); Puncture Site Other Site; Sodium 138.4 mmol/L (133-146); pH (venous) 7.35 (7.32-7.43)
[2023-02-07] MEDS ORDERED: Apixaban 5 MG TAB PO SCH (09:00)
[2023-02-07] MEDS: Finasteride 5 MG TAB PO SCH (09:37)
[2023-02-07] MEDS: Levothyroxine Sodium 88 MCG TAB PO SCH (09:37)
[2023-02-07] MEDS: DULoxetine 30 MG CAP PO SCH (09:37)
[2023-02-07] MEDS: Fenofibrate Nanocrystallized 145 MG TAB PO SCH (09:38)
[2023-02-07] MEDS: Dronedarone HCl 400 MG TAB PO SCH ×2 (09:38→17:09)
[2023-02-07] MEDS: Carbidopa/Levodopa 25-100 mg Tablet PO SCH ×3 (09:38→20:30)
[2023-02-07] MEDS: Folic Acid 1 MG TAB PO SCH (09:39)
[2023-02-07] MEDS ORDERED: Enoxaparin 120 MG/0.8 ML SYRINGE SC SCH (10:00)
[2023-02-07] MEDS: VANCOMYCIN 1.25 GM/250 ML BAG 1.25 GM in Premix Bag 1 BAG IVPB SCH (12:24)
[2023-02-07] MEDS ORDERED: Iopamidol 300 61% 100 ML VIAL FS ONE (14:21)
[2023-02-07] MEDS: Furosemide 100 MG in Sodium Chloride 0.9% 100 ML IVPB SCH (15:45)
[2023-02-07] MEDS: Albumin 25% 25 GM/100 ML BOT IVPB SCH ×2 (15:48→20:31)
[2023-02-07] MEDS: Acetaminophen 325 MG TAB PO PRN (17:09)
[2023-02-07] MEDS: Rosuvastatin 20 MG TAB PO SCH (20:29)
[2023-02-07] MEDS: Enoxaparin 120 MG/0.8 ML SYRINGE SC SCH (20:30)
[2023-02-07 23:28] LABS: Vancomycin, Trough 13.5 ug/mL
[2023-02-08] MEDS: Rosuvastatin 20 MG TAB PO SCH (00:35)
[2023-02-08] MEDS: Carbidopa/Levodopa 25-100 mg Tablet PO SCH ×4 (00:36→21:01)
[2023-02-08] MEDS: VANCOMYCIN 1.25 GM/250 ML BAG 1.25 GM in Premix Bag 1 BAG IVPB SCH ×3 (01:09→23:23)
[2023-02-08] MEDS: Cefepime 2 GM in Sodium Chloride 0.9% 100 ML IVPB SCH ×2 (02:12→11:44)
[2023-02-08] MEDS ORDERED: Ventilator Sedation Protocol 1 EACH FS SCH (03:03)
[2023-02-08] MEDS: Lactated Ringer's 1,000 ML IV SCH (03:20)
[2023-02-08] MEDS ORDERED: Fentanyl BOLUS 250 ML IVPB PRN (03:30)
[2023-02-08] MEDS ORDERED: Propofol BOLUS 1,000 MG/100 ML VIAL IV PRN (03:30)
[2023-02-08] MEDS ORDERED: DISCONTINUE PREVIOUS NARCOTIC PAIN MEDICATIONS AND BENZODIAZEPINES FS SCH (03:30)
[2023-02-08] MEDS ORDERED: Lorazepam 2 MG/ML VIAL SLOW IVP PRN (03:30)
[2023-02-08] MEDS ORDERED: Morphine 2 MG/ML VIAL SLOW IVP PRN (03:30)
[2023-02-08] MEDS ORDERED: Propofol 1,000 MG/100 ML VIAL IV PRN (03:30)
[2023-02-08 03:46] LABS: #Eosinphils 0.1 10x3/uL (0.0-0.5); #Monocytes 0.6 10x3/uL (0.0-1.1); #Neutrophils 4.2 10x3/uL (1.5-8.4); %Basophils 0.4 % (0.0-2.0); %Eosinophils 2.4 % (0.0-6.0); %Lymphocytes 9.7 % (18.0-47.0); %Monocytes 10.2 % (0.0-10.0); %Neutrophils 76.6 % (40.0-75.0); Hemoglobin 7.9 g/dL (13.5-17.5); Mean Corpuscular HGB CONC 28.7 g/dL (32.0-36.0); Mean Corpuscular Hemoglobin 28.7 pg (27.0-33.0); Mean Platelet Volume 9.9 fl (7.4-10.4); Platelet Count 198 10x3/uL (150-450); RBC Distribution Width 14.6 % (11.5-14.5); Red Blood Cell (RBC) Count 2.75 10x6/uL (4.32-5.72); White Blood Cell (WBC) Count 5.5 10x3/uL (3.5-10.5)
[2023-02-08 03:52] LABS: Lactic Acid 0.7 mmol/L (0.5-2.2)
[2023-02-08 03:56] LABS: ALT (SGPT) 17 U/L (8-55); AST (SGOT) 36 U/L (5-34); Albumin 3.3 g/dL (3.4-4.8); Alkaline Phosphatase 72 U/L (40-110); Anion Gap 14 mmol/L (10-20); BUN (Urea Nitrogen) 15 mg/dL (8.4-25.7); Bilirubin, Total 0.5 mg/dL (0.2-1.2); Calc. Creatinine Clearance 90 mL/min (70-130); Calcium 8.4 mg/dL (7.8-10.44); Carbon Dioxide 32 mmol/L (23-31); Chloride 103 mmol/L (98-107); Estimated GFR 65; Globulin 2.1 g/dL (2.4-3.5); Glucose 153 mg/dL (83-110); Magnesium 1.9 mg/dL (1.6-2.6); Potassium 4.5 mmol/L (3.5-5.1); Protein, Total 5.4 g/dL (5.8-8.1); Sodium 144 mmol/L (136-145)
[2023-02-08] MEDS: Albumin 25% 25 GM/100 ML BOT IVPB SCH ×4 (04:18→21:57)
[2023-02-08 04:26] LABS: Macrocytosis SLIGHT = 6-15 cells (100X) (0-5/hpf); Microcytosis SLIGHT = 6-15 cells (100X) (0-5/hpf); Polychromasia SLIGHT = 2-3 cells (100X) (0-2/hpf)
[2023-02-08 04:27] LABS: Platelet Morphology Comment Appears Adequate
[2023-02-08 05:33] LABS: Actual Bicarbonate (HCO3v) 28 mEq/L (22-28); Base Excess 2.6 mEq/L (-2 - +2); Chloride (VBG) 102 mmol/L (98-106); Critical Notified By: CP.PH; Hemoglobin (Hb) 8.7 g/dL (12.6-17.4); Potassium (VBG) 4.41 mmol/L (3.70-5.30); Puncture Site Other Site; Sodium 140.6 mmol/L (133-146); pH (venous) 7.38 (7.32-7.43)
[2023-02-08] MEDS: Dexmedetomidine In 0.9 % NaCl 100 ML IVPB SCH ×3 (05:37→19:17)
[2023-02-08] MEDS: Levothyroxine Sodium 88 MCG TAB PO SCH (06:58)
[2023-02-08] MEDS: Enoxaparin 120 MG/0.8 ML SYRINGE SC SCH ×2 (08:30→20:59)
[2023-02-08] MEDS: Finasteride 5 MG TAB PO SCH (08:30)
[2023-02-08] MEDS: Dronedarone HCl 400 MG TAB PO SCH ×2 (08:31→16:06)
[2023-02-08] MEDS: Folic Acid 1 MG TAB PO SCH (08:31)
[2023-02-08] MEDS: Empagliflozin 10 MG TAB PO SCH (09:07)
[2023-02-08] MEDS: Pantoprazole 40 MG VIAL IVP SCH ×2 (09:07→20:59)
[2023-02-08 10:52] LABS: Ref Lab Test Ordered MYASTENIA GRAVIS PN; Reference Lab Name LABCORP
[2023-02-08] MEDS ORDERED: Electrolyte Replacement Protocol 1 EACH FS SCH (11:00)
[2023-02-08] MEDS ORDERED: Magnesium 2 GM/50 ML(in water) 2 GM in Premix Bag 1 BAG IVPB SCH (12:00)
[2023-02-08] MEDS: Furosemide 100 MG in Sodium Chloride 0.9% 100 ML IVPB SCH (13:11)
[2023-02-08] MEDS: FENTANYL 2,000MCG/100-0.9%NACL 100 ML IVPB SCH (14:15)
[2023-02-08] MEDS ORDERED: Furosemide 100 MG, Admixture Fee 1 EACH in Sodium Chloride 0.9% 100 ML IVPB SCH (15:16)
[2023-02-08 15:58] LABS: Anion Gap 15 mmol/L (10-20); BUN (Urea Nitrogen) 16 mg/dL (8.4-25.7); Calc. Creatinine Clearance 91 mL/min (70-130); Calcium 8.8 mg/dL (7.8-10.44); Carbon Dioxide 37 mmol/L (23-31); Chloride 97 mmol/L (98-107); Estimated GFR 66; Glucose 111 mg/dL (83-110); Magnesium 2.1 mg/dL (1.6-2.6); Potassium 3.7 mmol/L (3.5-5.1); Sodium 145 mmol/L (136-145)
[2023-02-08] MEDS ORDERED: Potassium Chloride 40 MEQ in Premix Bag 1 BAG IVPB SCH (17:30)
[2023-02-08] MEDS ORDERED: Albumin 25% 25 GM/100 ML BOT IVPB SCH (18:00)
[2023-02-08] MEDS ORDERED: Furosemide 100 MG, Admixture Fee 1 EACH in Sodium Chloride 0.9% 90 ML IVPB SCH (20:45)
[2023-02-08] MEDS ORDERED: Enoxaparin 120 MG/0.8 ML SYRINGE SC ONE (20:59)
[2023-02-09] MEDS: Cefepime 2 GM in Sodium Chloride 0.9% 100 ML IVPB SCH (01:16)
[2023-02-09] MEDS: Albumin 25% 25 GM/100 ML BOT IVPB SCH ×3 (03:52→15:04)
[2023-02-09 04:31] LABS: ALV-art Gradient 198.775 mmHg (0-20); Actual Bicarbonate (HCO3a) 36.7 mEq/L (22-28); CO2 Tension 49.9 mmHg (35.0-45.0); Carboxyhemoglobin (COHb) 0.9 gm% (0.0-3.0); Critical Notified By: CP.PH; Hematocrit-ABG 27 % (42.0-52.0); Hemoglobin (Hb) 9.2 g/dL (14.0-18.0); O2 Tension (PaO2), arterial 59.7 mmHg (> 70.0); Potassium - ABG Lab 3.56 mmol/L (3.70-5.30); Puncture Site RRA; RapidComm Collect By CP.PH; pH, Arterial 7.485 (7.35-7.45)
[2023-02-09] MEDS: FENTANYL 2,000MCG/100-0.9%NACL 100 ML IVPB SCH ×2 (04:42→20:46)
[2023-02-09] MEDS: Dexmedetomidine In 0.9 % NaCl 100 ML IVPB SCH ×3 (04:42→22:23)
[2023-02-09 04:47] LABS: #Eosinphils 0.1 10x3/uL (0.0-0.5); #Monocytes 0.8 10x3/uL (0.0-1.1); #Neutrophils 3.4 10x3/uL (1.5-8.4); %Basophils 0.4 % (0.0-2.0); %Eosinophils 1.1 % (0.0-6.0); %Monocytes 14.6 % (0.0-10.0); %Neutrophils 60.5 % (40.0-75.0); Hemoglobin 8.6 g/dL (13.5-17.5); Mean Corpuscular HGB CONC 29.2 g/dL (32.0-36.0); Mean Corpuscular Hemoglobin 28.5 pg (27.0-33.0); Mean Corpuscular Volume 97.7 fl (81.2-95.1); Mean Platelet Volume 9.6 fl (7.4-10.4); Platelet Count 212 10x3/uL (150-450); RBC Distribution Width 14.4 % (11.5-14.5); Red Blood Cell (RBC) Count 3.02 10x6/uL (4.32-5.72); White Blood Cell (WBC) Count 5.6 10x3/uL (3.5-10.5)
[2023-02-09 04:58] LABS: ALT (SGPT) 7 U/L (8-55); AST (SGOT) 18 U/L (5-34); Albumin 4.1 g/dL (3.4-4.8); Alkaline Phosphatase 52 U/L (40-110); BUN (Urea Nitrogen) 21 mg/dL (8.4-25.7); Bilirubin, Total 0.9 mg/dL (0.2-1.2); Calc. Creatinine Clearance 72 mL/min (70-130); Calcium 8.9 mg/dL (7.8-10.44); Estimated GFR 50; Globulin 2.3 g/dL (2.4-3.5); Glucose 130 mg/dL (83-110); Magnesium 2.3 mg/dL (1.6-2.6); Phosphorus 2.2 mg/dL (2.3-4.7); Protein, Total 6.4 g/dL (5.8-8.1)
[2023-02-09 05:05] LABS: Anion Gap 21 mmol/L (10-20); Carbon Dioxide 33 mmol/L (23-31); Chloride 96 mmol/L (98-107); Potassium 3.6 mmol/L (3.5-5.1); Sodium 146 mmol/L (136-145)
[2023-02-09] MEDS: Levothyroxine Sodium 88 MCG TAB PO SCH (05:30)
[2023-02-09] MEDS ORDERED: Potassium Phosphate 30 MMOL in Sodium Chloride 0.9% 250 ML 250 ML IVPB SCH (06:30)
[2023-02-09] MEDS: Carbidopa/Levodopa 25-100 mg Tablet PO SCH ×4 (08:56→20:45)
[2023-02-09] MEDS: Finasteride 5 MG TAB PO SCH (08:56)
[2023-02-09] MEDS: Dronedarone HCl 400 MG TAB PO SCH ×2 (08:56→16:52)
[2023-02-09] MEDS: Folic Acid 1 MG TAB PO SCH (08:59)
[2023-02-09] MEDS: Empagliflozin 10 MG TAB PO SCH (08:59)
[2023-02-09] MEDS: Enoxaparin 120 MG/0.8 ML SYRINGE SC SCH ×2 (08:59→20:46)
[2023-02-09] MEDS: Pantoprazole 40 MG VIAL IVP SCH ×2 (08:59→20:46)
[2023-02-09] MEDS: Furosemide 100 MG, Admixture Fee 1 EACH in Sodium Chloride 0.9% 90 ML IVPB SCH (10:29)
[2023-02-09 15:07] LABS: Anion Gap 16 mmol/L (10-20); BUN (Urea Nitrogen) 24 mg/dL (8.4-25.7); Calc. Creatinine Clearance 75 mL/min (70-130); Calcium 9.1 mg/dL (7.8-10.44); Carbon Dioxide 36 mmol/L (23-31); Chloride 97 mmol/L (98-107); Estimated GFR 52; Glucose 139 mg/dL (83-110); Potassium 3.7 mmol/L (3.5-5.1); Sodium 145 mmol/L (136-145)
[2023-02-09] MEDS: Acetaminophen 325 MG TAB PO PRN (17:41)
[2023-02-10 04:03] LABS: ALV-art Gradient 210.725 mmHg (0-20); Actual Bicarbonate (HCO3a) 34.6 mEq/L (22-28); Base Excess (BEa) 10.5 mEq/L (-2.0 to +3.0); CO2 Tension 44.1 mmHg (35.0-45.0); Calcium, Ionized (arterial) 1.13 mmol/L (1.12-1.30); Carboxyhemoglobin (COHb) 0.7 gm% (0.0-3.0); Critical Notified By: CP.PH; Hematocrit-ABG 29 % (42.0-52.0); Potassium - ABG Lab 3.46 mmol/L (3.70-5.30); Puncture Site RRA; RapidComm Collect By CP.PH; pH, Arterial 7.512 (7.35-7.45)
[2023-02-10 04:23] LABS: Mean Corpuscular HGB CONC 29.2 g/dL (32.0-36.0); Mean Corpuscular Hemoglobin 28.5 pg (27.0-33.0); Mean Corpuscular Volume 97.5 fl (81.2-95.1); Mean Platelet Volume 9.5 fl (7.4-10.4); Platelet Count 224 10x3/uL (150-450); RBC Distribution Width 14.6 % (11.5-14.5); Red Blood Cell (RBC) Count 3.16 10x6/uL (4.32-5.72); White Blood Cell (WBC) Count 5.7 10x3/uL (3.5-10.5)
[2023-02-10 04:37] LABS: ALT (SGPT) 9 U/L (8-55); AST (SGOT) 26 U/L (5-34); Alkaline Phosphatase 48 U/L (40-110); Anion Gap 17 mmol/L (10-20); BUN (Urea Nitrogen) 28 mg/dL (8.4-25.7); Bilirubin, Total 0.9 mg/dL (0.2-1.2); Calc. Creatinine Clearance 80 mL/min (70-130); Calcium 9.5 mg/dL (7.8-10.44); Carbon Dioxide 34 mmol/L (23-31); Chloride 100 mmol/L (98-107); Estimated GFR 56; Globulin 2.2 g/dL (2.4-3.5); Glucose 152 mg/dL (83-110); Magnesium 2.4 mg/dL (1.6-2.6); Phosphorus 3.6 mg/dL (2.3-4.7); Potassium 3.4 mmol/L (3.5-5.1); Protein, Total 6.2 g/dL (5.8-8.1); Sodium 148 mmol/L (136-145)
[2023-02-10 04:43] LABS: MDiff Complete? YES
[2023-02-10 04:52] LABS: Band 7 % (5-11); Eosinophils 3 % (0-10); Lymphocytes 25 % (21-51); Monocytes 8 % (0-10); Neutrophil 56 % (42-75)
[2023-02-10 04:56] LABS: Hypochromia SLIGHT = 6-15 cells (100X) (0-5/hpf); Microcytosis SLIGHT = 6-15 cells (100X) (0-5/hpf); Platelet Morphology Comment Appears Adequate
[2023-02-10] MEDS: Levothyroxine Sodium 88 MCG TAB PO SCH (05:00)
[2023-02-10] MEDS: Dexmedetomidine In 0.9 % NaCl 100 ML IVPB SCH ×2 (05:00→18:21)
[2023-02-10] MEDS: Potassium Chloride 20 MEQ in Premix Bag 1 BAG IVPB SCH ×2 (05:32→08:24)
[2023-02-10] MEDS: Folic Acid 1 MG TAB PO SCH (08:24)
[2023-02-10] MEDS: Empagliflozin 10 MG TAB PO SCH (08:24)
[2023-02-10] MEDS: Finasteride 5 MG TAB PO SCH (08:24)
[2023-02-10] MEDS: Enoxaparin 120 MG/0.8 ML SYRINGE SC SCH ×2 (08:24→20:07)
[2023-02-10] MEDS: Pantoprazole 40 MG VIAL IVP SCH ×2 (08:24→20:08)
[2023-02-10] MEDS: Dronedarone HCl 400 MG TAB PO SCH ×2 (08:25→17:05)
[2023-02-10] MEDS: Carbidopa/Levodopa 25-100 mg Tablet PO SCH ×4 (08:25→20:08)
[2023-02-10] MEDS ORDERED: Ondansetron PF 4 MG/2 ML Vial IVP PRN (08:40)
[2023-02-10] MEDS ORDERED: Polyethylene Glycol 3350 17 GM Packet PO SCH (08:45)
[2023-02-10] MEDS: Polyethylene Glycol 3350 17 GM Packet PO SCH (09:40)
[2023-02-10] MEDS: Senokot S 8.6-50 MG TAB PO PRN (09:40)
[2023-02-10 16:17] LABS: Anion Gap 16 mmol/L (10-20); BUN (Urea Nitrogen) 32 mg/dL (8.4-25.7); Calc. Creatinine Clearance 73 mL/min (70-130); Calcium 9.1 mg/dL (7.8-10.44); Carbon Dioxide 34 mmol/L (23-31); Chloride 101 mmol/L (98-107); Estimated GFR 51; Glucose 179 mg/dL (83-110); Potassium 3.9 mmol/L (3.5-5.1); Sodium 147 mmol/L (136-145)
[2023-02-10] MEDS: Ipratropium/Albuterol 3 ML NEB NEB PRN (17:06)
[2023-02-10] MEDS ORDERED: Albumin 25% 200 ML ONE (17:27)
[2023-02-10 17:44] LABS: Actual Bicarbonate (HCO3a) 34.8 mEq/L (22-28); Base Excess (BEa) 8.3 mEq/L (-2.0 to +3.0); CO2 Tension 59.7 mmHg (35.0-45.0); Calcium, Ionized (arterial) 1.13 mmol/L (1.12-1.30); Hematocrit-ABG 31 % (42.0-52.0); Hemoglobin (Hb) 10.5 g/dL (14.0-18.0); O2 Tension (PaO2), arterial 60.7 mmHg (> 70.0); Potassium - ABG Lab 3.77 mmol/L (3.70-5.30); Puncture Site RRA; pH, Arterial 7.384 (7.35-7.45)
[2023-02-10 17:50] LABS: ALV-art Gradient 435.075 mmHg (0-20)
[2023-02-10] MEDS ORDERED: Albumin 25% 25 GM/100 ML BOT IVPB SCH (20:00)
[2023-02-10] MEDS: Acetaminophen 325 MG TAB PO PRN (20:07)
[2023-02-10] MEDS: FENTANYL 2,000MCG/100-0.9%NACL 100 ML IVPB SCH (22:04)
[2023-02-11] MEDS: HumaLOG 300 UNITS/3 ML VIAL SC PRN ×2 (00:26→05:42)
[2023-02-11] MEDS: Dexmedetomidine In 0.9 % NaCl 100 ML IVPB SCH ×3 (03:14→22:40)
[2023-02-11 04:16] LABS: Actual Bicarbonate (HCO3a) 35.4 mEq/L (22-28); Base Excess (BEa) 9.5 mEq/L (-2.0 to +3.0); Calcium, Ionized (arterial) 1.15 mmol/L (1.12-1.30); Carboxyhemoglobin (COHb) 0.7 gm% (0.0-3.0); Critical Notified By: CP.PH; Hematocrit-ABG 29 % (42.0-52.0); Hemoglobin (Hb) 9.7 g/dL (14.0-18.0); O2 Tension (PaO2), arterial 66.5 mmHg (> 70.0); Potassium - ABG Lab 3.79 mmol/L (3.70-5.30); Puncture Site RRA; RapidComm Collect By CP.PH; pH, Arterial 7.419 (7.35-7.45)
[2023-02-11] MEDS: Levothyroxine Sodium 88 MCG TAB PO SCH (05:13)
[2023-02-11 05:38] LABS: Anion Gap 16 mmol/L (10-20); BUN (Urea Nitrogen) 36 mg/dL (8.4-25.7); Calc. Creatinine Clearance 73 mL/min (70-130); Calcium 9.2 mg/dL (7.8-10.44); Carbon Dioxide 36 mmol/L (23-31); Chloride 103 mmol/L (98-107); Estimated GFR 51; Glucose 177 mg/dL (83-110); Magnesium 2.6 mg/dL (1.6-2.6); Phosphorus 4.5 mg/dL (2.3-4.7); Potassium 3.8 mmol/L (3.5-5.1); Sodium 151 mmol/L (136-145)
[2023-02-11 05:46] LABS: Hemoglobin 8.8 g/dL (13.5-17.5); Mean Corpuscular HGB CONC 28.4 g/dL (32.0-36.0); Mean Corpuscular Hemoglobin 28.2 pg (27.0-33.0); Mean Corpuscular Volume 99.4 fl (81.2-95.1); Mean Platelet Volume 10.4 fl (7.4-10.4); Platelet Count 240 10x3/uL (150-450); RBC Distribution Width 14.8 % (11.5-14.5); Red Blood Cell (RBC) Count 3.12 10x6/uL (4.32-5.72); White Blood Cell (WBC) Count 9.9 10x3/uL (3.5-10.5)
[2023-02-11 06:31] LABS: MDiff Complete? YES
[2023-02-11 06:36] LABS: Band 14 % (5-11); Eosinophils 1 % (0-10); Lymphocytes 13 % (21-51); Monocytes 8 % (0-10); Neutrophil 64 % (42-75)
[2023-02-11 06:38] LABS: Hypochromia MODERATE=16-30 cells (100X) (0-5/hpf); Microcytosis SLIGHT = 6-15 cells (100X) (0-5/hpf)
[2023-02-11] MEDS: Ipratropium/Albuterol 3 ML NEB NEB PRN (07:34)
[2023-02-11] MEDS: Finasteride 5 MG TAB PO SCH (08:55)
[2023-02-11] MEDS: Folic Acid 1 MG TAB PO SCH (08:55)
[2023-02-11] MEDS: Dronedarone HCl 400 MG TAB PO SCH ×2 (08:56→16:43)
[2023-02-11] MEDS: Pantoprazole 40 MG VIAL IVP SCH ×2 (08:56→20:19)
[2023-02-11] MEDS: Carbidopa/Levodopa 25-100 mg Tablet PO SCH ×4 (08:56→20:19)
[2023-02-11] MEDS: Empagliflozin 10 MG TAB PO SCH (08:56)
[2023-02-11] MEDS: Polyethylene Glycol 3350 17 GM Packet PO SCH (08:56)
[2023-02-11] MEDS: Furosemide 100 MG, Admixture Fee 1 EACH in Sodium Chloride 0.9% 90 ML IVPB SCH (08:57)
[2023-02-11] MEDS: Enoxaparin 120 MG/0.8 ML SYRINGE SC SCH ×2 (09:02→20:18)
[2023-02-11] MEDS: Senokot S 8.6-50 MG TAB PO PRN (09:03)
[2023-02-11] MEDS ORDERED: Piperacillin/Tazobactam 3.375 GM in Sodium Chloride 0.9% 100 ML IVPB SCH (10:15)
[2023-02-11] MEDS: Piperacillin/Tazobactam 3.375 GM in Sodium Chloride 0.9% 100 ML IVPB SCH ×2 (13:30→21:02)
[2023-02-11 15:56] LABS: Anion Gap 16 mmol/L (10-20); BUN (Urea Nitrogen) 37 mg/dL (8.4-25.7); Calc. Creatinine Clearance 73 mL/min (70-130); Calcium 9.2 mg/dL (7.8-10.44); Carbon Dioxide 34 mmol/L (23-31); Chloride 106 mmol/L (98-107); Estimated GFR 51; Glucose 155 mg/dL (83-110); Potassium 3.7 mmol/L (3.5-5.1)
[2023-02-11 15:58] LABS: Sodium 152 mmol/L (136-145)
[2023-02-11] MEDS: Dextrose 5% in Water 1,000 ML IV SCH (16:45)
[2023-02-11] MEDS: Acetaminophen 325 MG TAB PO PRN (17:15)
[2023-02-11] MEDS: Acetaminophen 650 MG/20.3 ML UDCUP PO PRN (20:19)
[2023-02-11] MEDS ORDERED: VANCOMYCIN 2 GRAM/400 ML BAG IVPB SCH (21:15)
[2023-02-11] MEDS: FENTANYL 2,000MCG/100-0.9%NACL 100 ML IVPB SCH (22:40)
[2023-02-11] MEDS ORDERED: VANCOMYCIN 2 GRAM/400 ML BAG 2 GM in Premix Bag 1 BAG IVPB SCH (23:00)
[2023-02-12] MEDS: Acetaminophen 650 MG/20.3 ML UDCUP PO PRN ×3 (00:20→17:14)
[2023-02-12 03:49] LABS: Actual Bicarbonate (HCO3a) 32.2 mEq/L (22-28); Base Excess (BEa) 8.4 mEq/L (-2.0 to +3.0); CO2 Tension 41.5 mmHg (35.0-45.0); Calcium, Ionized (arterial) 1.13 mmol/L (1.12-1.30); Carboxyhemoglobin (COHb) 0.4 gm% (0.0-3.0); Hematocrit-ABG 29 % (42.0-52.0); Hemoglobin (Hb) 9.9 g/dL (14.0-18.0); O2 Tension (PaO2), arterial 62.3 mmHg (> 70.0); Potassium - ABG Lab 3.71 mmol/L (3.70-5.30); Puncture Site RRA; pH, Arterial 7.508 (7.35-7.45)
[2023-02-12 03:52] LABS: ALV-art Gradient 242.325 mmHg (0-20)
[2023-02-12 05:20] LABS: #Eosinphils 0.2 10x3/uL (0.0-0.5); #Monocytes 0.7 10x3/uL (0.0-1.1); #Neutrophils 5.7 10x3/uL (1.5-8.4); %Basophils 0.4 % (0.0-2.0); %Eosinophils 1.9 % (0.0-6.0); %Lymphocytes 17.5 % (18.0-47.0); %Monocytes 9.1 % (0.0-10.0); %Neutrophils 70.5 % (40.0-75.0); Hemoglobin 8.8 g/dL (13.5-17.5); Mean Corpuscular HGB CONC 28.2 g/dL (32.0-36.0); Mean Corpuscular Hemoglobin 27.9 pg (27.0-33.0); Mean Platelet Volume 10.4 fl (7.4-10.4); Platelet Count 236 10x3/uL (150-450); RBC Distribution Width 15.5 % (11.5-14.5); Red Blood Cell (RBC) Count 3.15 10x6/uL (4.32-5.72); White Blood Cell (WBC) Count 8.1 10x3/uL (3.5-10.5)
[2023-02-12 05:27] LABS: Anion Gap 15 mmol/L (10-20); BUN (Urea Nitrogen) 39 mg/dL (8.4-25.7); Calc. Creatinine Clearance 69 mL/min (70-130); Calcium 9.1 mg/dL (7.8-10.44); Carbon Dioxide 32 mmol/L (23-31); Chloride 108 mmol/L (98-107); Estimated GFR 48; Glucose 174 mg/dL (83-110); Potassium 3.8 mmol/L (3.5-5.1)
[2023-02-12] MEDS ORDERED: Ketorolac Tromethamine 30 MG/ML VIAL IVP SCH (05:30)
[2023-02-12 05:32] LABS: Sodium 151 mmol/L (136-145)
[2023-02-12] MEDS: HumaLOG 300 UNITS/3 ML VIAL SC PRN ×2 (05:33→12:46)
[2023-02-12] MEDS: Levothyroxine Sodium 88 MCG TAB PO SCH (05:34)
[2023-02-12] MEDS: Piperacillin/Tazobactam 3.375 GM in Sodium Chloride 0.9% 100 ML IVPB SCH ×3 (05:34→21:25)
[2023-02-12 05:48] LABS: Anisocytosis SLIGHT = 6-15 cells (100X) (0-5/hpf); Hypochromia SLIGHT = 6-15 cells (100X) (0-5/hpf); Platelet Morphology Comment Appears Adequate
[2023-02-12] MEDS: Polyethylene Glycol 3350 17 GM Packet PO SCH (08:53)
[2023-02-12] MEDS: Enoxaparin 120 MG/0.8 ML SYRINGE SC SCH ×2 (08:53→21:25)
[2023-02-12] MEDS: Pantoprazole 40 MG VIAL IVP SCH ×2 (08:53→21:24)
[2023-02-12] MEDS: Dronedarone HCl 400 MG TAB PO SCH ×2 (08:53→17:13)
[2023-02-12] MEDS: Carbidopa/Levodopa 25-100 mg Tablet PO SCH ×4 (08:54→21:24)
[2023-02-12] MEDS: Empagliflozin 10 MG TAB PO SCH (08:54)
[2023-02-12] MEDS: Finasteride 5 MG TAB PO SCH (08:54)
[2023-02-12] MEDS: Folic Acid 1 MG TAB PO SCH (08:54)
[2023-02-12] MEDS ORDERED: Metolazone 5 MG TAB PO SCH (09:00)
[2023-02-12] MEDS: Dexmedetomidine In 0.9 % NaCl 100 ML IVPB SCH (10:38)
[2023-02-12] MEDS: Dextrose 5% in Water 1,000 ML IV SCH (13:02)
[2023-02-12] MEDS: FENTANYL 2,000MCG/100-0.9%NACL 100 ML IVPB SCH (14:00)
[2023-02-12 16:27] LABS: Anion Gap 15 mmol/L (10-20); BUN (Urea Nitrogen) 44 mg/dL (8.4-25.7); Calc. Creatinine Clearance 67 mL/min (70-130); Calcium 8.9 mg/dL (7.8-10.44); Carbon Dioxide 33 mmol/L (23-31); Chloride 107 mmol/L (98-107); Estimated GFR 46; Glucose 160 mg/dL (83-110)
[2023-02-12 16:34] LABS: Sodium 151 mmol/L (136-145)
[2023-02-12] MEDS: VANCOMYCIN 1.75 GM/350 ML BAG 1.75 GM in Premix Bag 1 BAG IVPB SCH (22:38)
[2023-02-13 03:49] LABS: Actual Bicarbonate (HCO3a) 36.3 mEq/L (22-28); Base Excess (BEa) 8.6 mEq/L (-2.0 to +3.0); CO2 Tension 69.9 mmHg (35.0-45.0); Calcium, Ionized (arterial) 1.12 mmol/L (1.12-1.30); Carboxyhemoglobin (COHb) 0.7 gm% (0.0-3.0); Hematocrit-ABG 30 % (42.0-52.0); Hemoglobin (Hb) 10.1 g/dL (14.0-18.0); O2 Tension (PaO2), arterial 77.9 mmHg (> 70.0); Potassium - ABG Lab 3.93 mmol/L (3.70-5.30); Puncture Site RRA; pH, Arterial 7.333 (7.35-7.45)
[2023-02-13 03:51] LABS: ALV-art Gradient 191.225 mmHg (0-20)
[2023-02-13] MEDS: FENTANYL 2,000MCG/100-0.9%NACL 100 ML IVPB SCH ×2 (03:54→23:21)
[2023-02-13 03:55] LABS: #Basophils 0.1 10x3/uL (0.0-0.2); #Eosinphils 0.4 10x3/uL (0.0-0.5); #Monocytes 0.9 10x3/uL (0.0-1.1); #Neutrophils 6.1 10x3/uL (1.5-8.4); %Basophils 0.5 % (0.0-2.0); %Eosinophils 3.8 % (0.0-6.0); %Lymphocytes 19.9 % (18.0-47.0); %Monocytes 9.7 % (0.0-10.0); %Neutrophils 65.8 % (40.0-75.0); Hemoglobin 9.2 g/dL (13.5-17.5); Mean Corpuscular HGB CONC 28.1 g/dL (32.0-36.0); Mean Corpuscular Hemoglobin 28.4 pg (27.0-33.0); Mean Corpuscular Volume 100.9 fl (81.2-95.1); Platelet Count 281 10x3/uL (150-450); Red Blood Cell (RBC) Count 3.24 10x6/uL (4.32-5.72); White Blood Cell (WBC) Count 9.2 10x3/uL (3.5-10.5)
[2023-02-13 04:09] LABS: Anion Gap 16 mmol/L (10-20); BUN (Urea Nitrogen) 42 mg/dL (8.4-25.7); Calc. Creatinine Clearance 69 mL/min (70-130); Calcium 8.7 mg/dL (7.8-10.44); Carbon Dioxide 33 mmol/L (23-31); Chloride 105 mmol/L (98-107); Estimated GFR 47; Glucose 172 mg/dL (83-110); Potassium 4.1 mmol/L (3.5-5.1); Sodium 150 mmol/L (136-145)
[2023-02-13 04:20] LABS: Anisocytosis SLIGHT = 6-15 cells (100X) (0-5/hpf); Hypochromia SLIGHT = 6-15 cells (100X) (0-5/hpf); Platelet Morphology Comment Appears Adequate
[2023-02-13] MEDS: Levothyroxine Sodium 88 MCG TAB PO SCH (05:09)
[2023-02-13] MEDS: Piperacillin/Tazobactam 3.375 GM in Sodium Chloride 0.9% 100 ML IVPB SCH ×3 (05:09→21:00)
[2023-02-13] MEDS ORDERED: Furosemide 40 MG/4 ML VIAL SLOW IVP SCH (06:00)
[2023-02-13] MEDS: Dexmedetomidine In 0.9 % NaCl 100 ML IVPB SCH ×2 (06:16→19:33)
[2023-02-13] MEDS: Carbidopa/Levodopa 25-100 mg Tablet PO SCH ×4 (09:44→21:04)
[2023-02-13] MEDS: Pantoprazole 40 MG VIAL IVP SCH ×2 (09:44→21:00)
[2023-02-13] MEDS: Finasteride 5 MG TAB PO SCH (09:44)
[2023-02-13] MEDS: Metolazone 5 MG TAB PO SCH (09:44)
[2023-02-13] MEDS: Enoxaparin 120 MG/0.8 ML SYRINGE SC SCH ×2 (09:44→21:01)
[2023-02-13] MEDS: Polyethylene Glycol 3350 17 GM Packet PO SCH (09:44)
[2023-02-13] MEDS: Dronedarone HCl 400 MG TAB PO SCH ×2 (09:44→18:21)
[2023-02-13] MEDS: Folic Acid 1 MG TAB PO SCH (09:45)
[2023-02-13] MEDS: Empagliflozin 10 MG TAB PO SCH (09:45)
[2023-02-13] MEDS: Acetaminophen 650 MG/20.3 ML UDCUP PO PRN ×2 (10:13→15:15)
[2023-02-13] MEDS: HumaLOG 300 UNITS/3 ML VIAL SC PRN ×2 (12:27→19:40)
[2023-02-13] MEDS ORDERED: NOREPINEPHRINE 8 MG/250 ML-D5W 250 ML IVPB SCH (12:30)
[2023-02-13] MEDS: Furosemide 20 MG/2 ML VIAL SLOW IVP SCH ×2 (13:19→20:04)
[2023-02-13] MEDS: Ibuprofen 400 MG TAB PO SCH ×2 (18:21→23:21)
[2023-02-13 18:47] LABS: Strep pneumo Urine Ag NEGATIVE (NEGATIVE)
[2023-02-13] MEDS: Acetaminophen 500 MG TAB PO SCH (20:03)
[2023-02-13 22:25] LABS: Vancomycin, Trough 12.1 ug/mL
[2023-02-13] MEDS ORDERED: VANCOMYCIN 2 GRAM/400 ML BAG 2 GM in Premix Bag 1 BAG IVPB SCH (23:30)
[2023-02-14] MEDS: Acetaminophen 500 MG TAB PO SCH ×3 (01:36→13:51)
[2023-02-14 03:22] LABS: Actual Bicarbonate (HCO3a) 35.6 mEq/L (22-28); Base Excess (BEa) 9.9 mEq/L (-2.0 to +3.0); CO2 Tension 54.1 mmHg (35.0-45.0); Calcium, Ionized (arterial) 1.06 mmol/L (1.12-1.30); Carboxyhemoglobin (COHb) 0.5 gm% (0.0-3.0); Hematocrit-ABG 30 % (42.0-52.0); Hemoglobin (Hb) 10.1 g/dL (14.0-18.0); O2 Tension (PaO2), arterial 63.8 mmHg (> 70.0); Potassium - ABG Lab 3.33 mmol/L (3.70-5.30); Puncture Site RRA; pH, Arterial 7.436 (7.35-7.45)
[2023-02-14 03:25] LABS: ALV-art Gradient 296.375 mmHg (0-20)
[2023-02-14 03:31] LABS: #Basophils 0.1 10x3/uL (0.0-0.2); #Eosinphils 0.2 10x3/uL (0.0-0.5); #Monocytes 0.7 10x3/uL (0.0-1.1); #Neutrophils 4.3 10x3/uL (1.5-8.4); %Basophils 0.7 % (0.0-2.0); %Eosinophils 3.2 % (0.0-6.0); %Lymphocytes 28.6 % (18.0-47.0); %Monocytes 9.5 % (0.0-10.0); %Neutrophils 57.6 % (40.0-75.0); Hemoglobin 9.2 g/dL (13.5-17.5); Mean Corpuscular HGB CONC 28.9 g/dL (32.0-36.0); Mean Corpuscular Hemoglobin 27.6 pg (27.0-33.0); Mean Corpuscular Volume 95.5 fl (81.2-95.1); Mean Platelet Volume 10.5 fl (7.4-10.4); Platelet Count 277 10x3/uL (150-450); Red Blood Cell (RBC) Count 3.33 10x6/uL (4.32-5.72); White Blood Cell (WBC) Count 7.5 10x3/uL (3.5-10.5)
[2023-02-14] MEDS: Dexmedetomidine In 0.9 % NaCl 100 ML IVPB SCH ×5 (03:37→21:24)
[2023-02-14 03:50] LABS: ALT (SGPT) 6 U/L (8-55); AST (SGOT) 22 U/L (5-34); Albumin 3.3 g/dL (3.4-4.8); Alkaline Phosphatase 46 U/L (40-110); Anion Gap 17 mmol/L (10-20); BUN (Urea Nitrogen) 43 mg/dL (8.4-25.7); Bilirubin, Total 0.5 mg/dL (0.2-1.2); Calc. Creatinine Clearance 66 mL/min (70-130); Calcium 8.5 mg/dL (7.8-10.44); Carbon Dioxide 33 mmol/L (23-31); Chloride 97 mmol/L (98-107); Estimated GFR 45; Globulin 2.6 g/dL (2.4-3.5); Glucose 170 mg/dL (83-110); Potassium 3.5 mmol/L (3.5-5.1); Protein, Total 5.9 g/dL (5.8-8.1); Sodium 143 mmol/L (136-145)
[2023-02-14 03:57] LABS: Anisocytosis SLIGHT = 6-15 cells (100X) (0-5/hpf); Hypochromia SLIGHT = 6-15 cells (100X) (0-5/hpf); Platelet Morphology Comment Appears Adequate
[2023-02-14] MEDS: Ibuprofen 400 MG TAB PO SCH ×2 (04:44→11:29)
[2023-02-14] MEDS: Furosemide 20 MG/2 ML VIAL SLOW IVP SCH ×3 (04:45→20:03)
[2023-02-14] MEDS: Piperacillin/Tazobactam 3.375 GM in Sodium Chloride 0.9% 100 ML IVPB SCH ×3 (05:06→21:12)
[2023-02-14] MEDS: Levothyroxine Sodium 88 MCG TAB PO SCH (05:07)
[2023-02-14] MEDS ORDERED: Potassium Chloride 40 MEQ in Premix Bag 1 BAG IVPB SCH (06:00)
[2023-02-14] MEDS ORDERED: ADMIXTURE FEE IVPB SCH (06:00)
[2023-02-14] MEDS ORDERED: POTASSIUM CHLORIDE IVPB SCH (06:00)
[2023-02-14] MEDS: Pantoprazole 40 MG VIAL IVP SCH ×2 (07:44→21:13)
[2023-02-14] MEDS: Metolazone 5 MG TAB PO SCH ×2 (07:45→07:54)
[2023-02-14] MEDS: Folic Acid 1 MG TAB PO SCH ×2 (07:45→07:54)
[2023-02-14] MEDS: Enoxaparin 120 MG/0.8 ML SYRINGE SC SCH ×2 (07:45→21:12)
[2023-02-14] MEDS: Finasteride 5 MG TAB PO SCH ×2 (07:46→07:54)
[2023-02-14] MEDS: Empagliflozin 10 MG TAB PO SCH (07:46)
[2023-02-14] MEDS: Dronedarone HCl 400 MG TAB PO SCH ×2 (08:01→16:53)
[2023-02-14] MEDS: Carbidopa/Levodopa 25-100 mg Tablet PO SCH ×4 (08:01→22:03)
[2023-02-14] MEDS: Polyethylene Glycol 3350 17 GM Packet PO SCH ×2 (08:04→09:33)
[2023-02-14] MEDS: VANCOMYCIN 1.75 GM/350 ML BAG 1.75 GM in Premix Bag 1 BAG IVPB SCH (08:04)
[2023-02-14] MEDS: FENTANYL 2,000MCG/100-0.9%NACL 100 ML IVPB SCH (09:32)
[2023-02-14] MEDS ORDERED: Bisacodyl 10 MG SUPP PR SCH (12:00)
[2023-02-14] MEDS ORDERED: Cosyntropin 250 MCG VIAL SLOW IVP SCH (16:15)
[2023-02-14] MEDS: HumaLOG 300 UNITS/3 ML VIAL SC PRN (16:35)
[2023-02-14] MEDS: Acetaminophen 650 MG/20.3 ML UDCUP PO PRN ×2 (17:53→22:40)
[2023-02-14] MEDS ORDERED: Metoclopramide HCl 10 MG/2 ML VIAL IVP SCH (18:30)
[2023-02-14] MEDS: Rosuvastatin 20 MG TAB PO SCH (21:12)
[2023-02-14] MEDS: Senokot S 8.6-50 MG TAB PO SCH (21:13)
[2023-02-14] MEDS ORDERED: Ibuprofen 600 MG TAB PO SCH (23:30)
[2023-02-14] MEDS ORDERED: VANCOMYCIN 1.75 GM/350 ML BAG 1.75 GM in Premix Bag 1 BAG IVPB SCH (23:30)
[2023-02-15] MEDS: Dexmedetomidine In 0.9 % NaCl 100 ML IVPB SCH ×3 (01:04→07:41)
[2023-02-15] MEDS: HumaLOG 300 UNITS/3 ML VIAL SC PRN ×4 (02:03→16:19)
[2023-02-15] MEDS: Acetaminophen 650 MG/20.3 ML UDCUP PO PRN ×2 (02:56→07:42)
[2023-02-15] MEDS: FENTANYL 2,000MCG/100-0.9%NACL 100 ML IVPB SCH (02:57)
[2023-02-15] MEDS: Furosemide 20 MG/2 ML VIAL SLOW IVP SCH ×3 (03:52→21:11)
[2023-02-15 03:55] LABS: Mean Corpuscular HGB CONC 29.9 g/dL (32.0-36.0); Mean Corpuscular Hemoglobin 27.9 pg (27.0-33.0); Mean Corpuscular Volume 93.3 fl (81.2-95.1); Platelet Count 298 10x3/uL (150-450); RBC Distribution Width 15.9 % (11.5-14.5); Red Blood Cell (RBC) Count 3.59 10x6/uL (4.32-5.72); White Blood Cell (WBC) Count 8.5 10x3/uL (3.5-10.5)
[2023-02-15 03:55] LABS: Anion Gap 16 mmol/L (10-20); BUN (Urea Nitrogen) 49 mg/dL (8.4-25.7); Calc. Creatinine Clearance 66 mL/min (70-130); Calcium 8.4 mg/dL (7.8-10.44); Carbon Dioxide 35 mmol/L (23-31); Chloride 94 mmol/L (98-107); Estimated GFR 44; Glucose 271 mg/dL (83-110); Potassium 3.4 mmol/L (3.5-5.1); Sodium 142 mmol/L (136-145)
[2023-02-15] MEDS: Potassium Chloride 20 MEQ in Premix Bag 1 BAG IVPB SCH ×2 (05:46→07:41)
[2023-02-15] MEDS: Piperacillin/Tazobactam 3.375 GM in Sodium Chloride 0.9% 100 ML IVPB SCH ×3 (05:46→21:13)
[2023-02-15] MEDS: Levothyroxine Sodium 88 MCG TAB PO SCH (05:46)
[2023-02-15] MEDS: Carbidopa/Levodopa 25-100 mg Tablet PO SCH ×4 (07:37→21:12)
[2023-02-15] MEDS: Finasteride 5 MG TAB PO SCH ×2 (07:39→07:40)
[2023-02-15] MEDS: Folic Acid 1 MG TAB PO SCH ×2 (07:39→07:41)
[2023-02-15] MEDS: Pantoprazole 40 MG VIAL IVP SCH ×2 (07:39→21:11)
[2023-02-15] MEDS: Metolazone 5 MG TAB PO SCH (07:39)
[2023-02-15] MEDS: Empagliflozin 10 MG TAB PO SCH (07:39)
[2023-02-15] MEDS: Senokot S 8.6-50 MG TAB PO SCH ×2 (07:39→21:12)
[2023-02-15] MEDS: Polyethylene Glycol 3350 17 GM Packet PO SCH (07:41)
[2023-02-15] MEDS: Dronedarone HCl 400 MG TAB PO SCH ×2 (07:41→16:19)
[2023-02-15] MEDS: Enoxaparin 120 MG/0.8 ML SYRINGE SC SCH ×2 (07:41→21:14)
[2023-02-15 08:48] LABS: Magnesium 2.9 mg/dL (1.6-2.6)
[2023-02-15] MEDS ORDERED: Cosyntropin 250 MCG VIAL SLOW IVP SCH (10:45)
[2023-02-15] MEDS: Rosuvastatin 20 MG TAB PO SCH (21:12)
[2023-02-15] MEDS ORDERED: VANCOMYCIN 2 GRAM/400 ML BAG 2 GM in Premix Bag 1 BAG IVPB ONE (23:45)
[2023-02-16] MEDS: Furosemide 20 MG/2 ML VIAL SLOW IVP SCH ×3 (04:53→20:54)
[2023-02-16] MEDS: Piperacillin/Tazobactam 3.375 GM in Sodium Chloride 0.9% 100 ML IVPB SCH ×3 (05:10→20:55)
[2023-02-16] MEDS: Levothyroxine Sodium 88 MCG TAB PO SCH (05:10)
[2023-02-16 05:36] LABS: Hemoglobin 9.9 g/dL (13.5-17.5); Mean Corpuscular HGB CONC 28.6 g/dL (32.0-36.0); Mean Corpuscular Hemoglobin 27.4 pg (27.0-33.0); Mean Corpuscular Volume 95.8 fl (81.2-95.1); Mean Platelet Volume 11.1 fl (7.4-10.4); Platelet Count 324 10x3/uL (150-450); RBC Distribution Width 15.6 % (11.5-14.5); Red Blood Cell (RBC) Count 3.61 10x6/uL (4.32-5.72); White Blood Cell (WBC) Count 10.5 10x3/uL (3.5-10.5)
[2023-02-16 05:54] LABS: Anion Gap 21 mmol/L (10-20); BUN (Urea Nitrogen) 56 mg/dL (8.4-25.7); Calc. Creatinine Clearance 70 mL/min (70-130); Calcium 9.1 mg/dL (7.8-10.44); Carbon Dioxide 35 mmol/L (23-31); Chloride 94 mmol/L (98-107); Estimated GFR 48; Glucose 145 mg/dL (83-110); Sodium 147 mmol/L (136-145)
[2023-02-16] MEDS: Potassium Chloride 20 MEQ in Premix Bag 1 BAG IVPB SCH ×2 (08:49→10:31)
[2023-02-16] MEDS: Polyethylene Glycol 3350 17 GM Packet PO SCH (09:19)
[2023-02-16] MEDS: Carbidopa/Levodopa 25-100 mg Tablet PO SCH ×4 (09:20→20:54)
[2023-02-16] MEDS: Empagliflozin 10 MG TAB PO SCH (09:20)
[2023-02-16] MEDS: Apixaban 5 MG TAB PO SCH ×2 (09:20→20:53)
[2023-02-16] MEDS: Metolazone 5 MG TAB PO SCH (09:20)
[2023-02-16] MEDS: Dronedarone HCl 400 MG TAB PO SCH ×2 (09:20→17:40)
[2023-02-16] MEDS: Pantoprazole 40 MG VIAL IVP SCH ×2 (09:21→20:53)
[2023-02-16] MEDS: Senokot S 8.6-50 MG TAB PO SCH ×2 (09:21→19:34)
[2023-02-16] MEDS: HumaLOG 300 UNITS/3 ML VIAL SC PRN ×2 (12:41→17:59)
[2023-02-16] MEDS ORDERED: Docusate 100 MG CAP PO PRN (15:52)
[2023-02-16] MEDS: Carvedilol 6.25 MG TAB PO SCH (17:39)
[2023-02-16] MEDS: Rosuvastatin 20 MG TAB PO SCH (20:54)
[2023-02-16] MEDS ORDERED: VANCOMYCIN 1.75 GM/350 ML BAG 1.75 GM in Premix Bag 1 BAG IVPB SCH (23:59)
[2023-02-17] MEDS: Levothyroxine Sodium 88 MCG TAB PO SCH (04:46)
[2023-02-17] MEDS: Furosemide 20 MG/2 ML VIAL SLOW IVP SCH ×3 (04:46→21:29)
[2023-02-17 05:07] LABS: Anion Gap 18 mmol/L (10-20); BUN (Urea Nitrogen) 55 mg/dL (8.4-25.7); Calc. Creatinine Clearance 75 mL/min (70-130); Calcium 8.8 mg/dL (7.8-10.44); Carbon Dioxide 37 mmol/L (23-31); Chloride 91 mmol/L (98-107); Estimated GFR 56; Glucose 159 mg/dL (83-110); Potassium 2.7 mmol/L (3.5-5.1); Sodium 143 mmol/L (136-145)
[2023-02-17] MEDS: Piperacillin/Tazobactam 3.375 GM in Sodium Chloride 0.9% 100 ML IVPB SCH ×3 (05:10→21:31)
[2023-02-17] MEDS: Potassium Chloride 20 MEQ in Premix Bag 1 BAG IVPB SCH ×4 (05:26→11:50)
[2023-02-17 05:30] LABS: #Monocytes 0.7 10x3/uL (0.0-1.1); #Neutrophils 7.1 10x3/uL (1.5-8.4); %Basophils 0.3 % (0.0-2.0); %Lymphocytes 16.4 % (18.0-47.0); %Monocytes 7.7 % (0.0-10.0); %Neutrophils 74.9 % (40.0-75.0); Hemoglobin 9.9 g/dL (13.5-17.5); Mean Corpuscular HGB CONC 29.4 g/dL (32.0-36.0); Mean Corpuscular Hemoglobin 27.3 pg (27.0-33.0); Mean Corpuscular Volume 93.1 fl (81.2-95.1); Mean Platelet Volume 11.3 fl (7.4-10.4); Platelet Count 402 10x3/uL (150-450); RBC Distribution Width 15.6 % (11.5-14.5); Red Blood Cell (RBC) Count 3.62 10x6/uL (4.32-5.72); White Blood Cell (WBC) Count 9.5 10x3/uL (3.5-10.5)
[2023-02-17 05:39] LABS: Magnesium 2.9 mg/dL (1.6-2.6)
[2023-02-17 05:47] LABS: Platelet Morphology Comment Appears Increased
[2023-02-17 05:48] LABS: Hypochromia SLIGHT = 6-15 cells (100X) (0-5/hpf)
[2023-02-17] MEDS: Carbidopa/Levodopa 25-100 mg Tablet PO SCH ×4 (08:28→21:31)
[2023-02-17] MEDS: Pantoprazole 40 MG VIAL IVP SCH ×2 (08:28→21:30)
[2023-02-17] MEDS: Carvedilol 6.25 MG TAB PO SCH ×2 (08:29→17:01)
[2023-02-17] MEDS: Alogliptin 6.25 MG TAB PO SCH (08:29)
[2023-02-17] MEDS: Folic Acid 1 MG TAB PO SCH (08:29)
[2023-02-17] MEDS: Finasteride 5 MG TAB PO SCH (08:29)
[2023-02-17] MEDS: Empagliflozin 10 MG TAB PO SCH (08:29)
[2023-02-17] MEDS: Apixaban 5 MG TAB PO SCH ×2 (08:29→21:30)
[2023-02-17] MEDS: Metolazone 5 MG TAB PO SCH (08:30)
[2023-02-17] MEDS: Dronedarone HCl 400 MG TAB PO SCH ×2 (08:30→17:02)
[2023-02-17] MEDS: Senokot S 8.6-50 MG TAB PO SCH ×2 (08:31→20:00)
[2023-02-17] MEDS: Polyethylene Glycol 3350 17 GM Packet PO SCH (08:31)
[2023-02-17] MEDS ORDERED: Lisinopril 20 MG TAB PO SCH (09:00)
[2023-02-17] MEDS: HumaLOG 300 UNITS/3 ML VIAL SC PRN (17:36)
[2023-02-17] MEDS ORDERED: Sterile Water 10 ML VIAL FS PRN (21:15)
[2023-02-17] MEDS ORDERED: Ziprasidone 20 MG VIAL IM SCH (21:15)
[2023-02-17] MEDS ORDERED: Sterile Water 10 ML ONE (21:17)
[2023-02-17] MEDS: Rosuvastatin 20 MG TAB PO SCH (21:30)
[2023-02-18 04:07] LABS: BUN (Urea Nitrogen) 52 mg/dL (8.4-25.7); Calc. Creatinine Clearance 80 mL/min (70-130); Calcium 9.5 mg/dL (7.8-10.44); Estimated GFR 54; Glucose 157 mg/dL (83-110)
[2023-02-18 04:14] LABS: Anion Gap 23 mmol/L (10-20); Carbon Dioxide 35 mmol/L (23-31); Chloride 89 mmol/L (98-107); Potassium 2.8 mmol/L (3.5-5.1); Sodium 144 mmol/L (136-145)
[2023-02-18] MEDS: Furosemide 20 MG/2 ML VIAL SLOW IVP SCH (05:30)
[2023-02-18] MEDS: Levothyroxine Sodium 88 MCG TAB PO SCH (05:57)
[2023-02-18] MEDS: Piperacillin/Tazobactam 3.375 GM in Sodium Chloride 0.9% 100 ML IVPB SCH ×2 (06:03→13:09)
[2023-02-18] MEDS: Potassium Chloride 20 MEQ in Premix Bag 1 BAG IVPB SCH ×4 (06:05→12:05)
[2023-02-18] MEDS ORDERED: Electrolyte Replacement Protocol FS SCH (08:15)
[2023-02-18] MEDS ORDERED: Magnesium 2 GM/50 ML(in water) 2 GM in Premix Bag 1 BAG IVPB SCH (09:00)
[2023-02-18] MEDS: Metolazone 5 MG TAB PO SCH (09:20)
[2023-02-18] MEDS: Dronedarone HCl 400 MG TAB PO SCH ×2 (09:21→16:52)
[2023-02-18] MEDS: Alogliptin 6.25 MG TAB PO SCH (09:21)
[2023-02-18] MEDS: Empagliflozin 10 MG TAB PO SCH (09:22)
[2023-02-18] MEDS: Apixaban 5 MG TAB PO SCH ×2 (09:22→20:33)
[2023-02-18] MEDS: Folic Acid 1 MG TAB PO SCH (09:22)
[2023-02-18] MEDS: Finasteride 5 MG TAB PO SCH (09:22)
[2023-02-18] MEDS: Carvedilol 6.25 MG TAB PO SCH ×2 (09:22→16:52)
[2023-02-18] MEDS: Pantoprazole 40 MG VIAL IVP SCH ×2 (09:23→20:33)
[2023-02-18] MEDS: Carbidopa/Levodopa 25-100 mg Tablet PO SCH ×4 (09:23→21:39)
[2023-02-18] MEDS: Polyethylene Glycol 3350 17 GM Packet PO SCH (09:24)
[2023-02-18] MEDS: Senokot S 8.6-50 MG TAB PO SCH ×2 (09:24→20:32)
[2023-02-18 11:16] LABS: Magnesium 2.9 mg/dL (1.6-2.6)
[2023-02-18] MEDS: HumaLOG 300 UNITS/3 ML VIAL SC PRN (12:53)
[2023-02-18] MEDS: Ipratropium/Albuterol 3 ML NEB NEB PRN (19:21)
[2023-02-18] MEDS ORDERED: traZODone HCl 50 MG TAB PO SCH (20:15)
[2023-02-18] MEDS: Rosuvastatin 20 MG TAB PO SCH (20:32)
[2023-02-18 23:49] LABS: BUN (Urea Nitrogen) 53 mg/dL (8.4-25.7); Calc. Creatinine Clearance 81 mL/min (70-130); Calcium 9.2 mg/dL (7.8-10.44); Estimated GFR 55; Glucose 191 mg/dL (83-110); Magnesium 3.2 mg/dL (1.6-2.6)
[2023-02-18 23:56] LABS: Anion Gap 21 mmol/L (10-20); Carbon Dioxide 34 mmol/L (23-31); Chloride 94 mmol/L (98-107); Potassium 2.9 mmol/L (3.5-5.1); Sodium 146 mmol/L (136-145)
[2023-02-19] MEDS: Potassium Chloride 20 MEQ in Premix Bag 1 BAG IVPB SCH ×6 (00:17→19:25)
[2023-02-19] MEDS: Ipratropium/Albuterol 3 ML NEB NEB PRN (01:20)
[2023-02-19] MEDS: Levothyroxine Sodium 88 MCG TAB PO SCH (05:03)
[2023-02-19] MEDS: HumaLOG 300 UNITS/3 ML VIAL SC PRN ×2 (05:43→11:50)
[2023-02-19] MEDS: Pantoprazole 40 MG VIAL IVP SCH ×2 (08:20→21:15)
[2023-02-19] MEDS: Carbidopa/Levodopa 25-100 mg Tablet PO SCH ×4 (08:21→21:13)
[2023-02-19] MEDS: Carvedilol 6.25 MG TAB PO SCH ×2 (08:21→17:07)
[2023-02-19] MEDS: Dronedarone HCl 400 MG TAB PO SCH ×2 (08:21→17:07)
[2023-02-19] MEDS: Finasteride 5 MG TAB PO SCH (08:22)
[2023-02-19] MEDS: Folic Acid 1 MG TAB PO SCH (08:22)
[2023-02-19] MEDS: Apixaban 5 MG TAB PO SCH ×2 (08:22→21:14)
[2023-02-19] MEDS: Alogliptin 6.25 MG TAB PO SCH (08:22)
[2023-02-19] MEDS: Furosemide 40 MG TAB PO SCH (08:23)
[2023-02-19] MEDS: Empagliflozin 10 MG TAB PO SCH (08:23)
[2023-02-19] MEDS: Polyethylene Glycol 3350 17 GM Packet PO SCH (08:24)
[2023-02-19 09:03] LABS: BUN (Urea Nitrogen) 51 mg/dL (8.4-25.7); Calc. Creatinine Clearance 88 mL/min (70-130); Calcium 9.4 mg/dL (7.8-10.44); Estimated GFR 61; Glucose 144 mg/dL (83-110)
[2023-02-19 09:10] LABS: Anion Gap 21 mmol/L (10-20); Carbon Dioxide 34 mmol/L (23-31); Chloride 97 mmol/L (98-107); Potassium 3.5 mmol/L (3.5-5.1); Sodium 148 mmol/L (136-145)
[2023-02-19] MEDS: Senokot S 8.6-50 MG TAB PO SCH ×2 (11:48→21:14)
[2023-02-19 13:59] LABS: Potassium 3.1 mmol/L (3.5-5.1)
[2023-02-19] MEDS ORDERED: traZODone HCl 50 MG TAB PO SCH (21:00)
[2023-02-19] MEDS: Rosuvastatin 20 MG TAB PO SCH (21:14)
[2023-02-20 03:48] LABS: Potassium 3.6 mmol/L (3.5-5.1)
[2023-02-20] MEDS: Levothyroxine Sodium 88 MCG TAB PO SCH (05:40)
[2023-02-20] MEDS: HumaLOG 300 UNITS/3 ML VIAL SC PRN ×3 (05:55→17:21)
[2023-02-20] MEDS: Alogliptin 6.25 MG TAB PO SCH (08:41)
[2023-02-20] MEDS: Pantoprazole 40 MG VIAL IVP SCH ×2 (08:41→19:49)
[2023-02-20] MEDS: Folic Acid 1 MG TAB PO SCH (08:42)
[2023-02-20] MEDS: Apixaban 5 MG TAB PO SCH ×2 (08:42→19:48)
[2023-02-20] MEDS: Finasteride 5 MG TAB PO SCH (08:42)
[2023-02-20] MEDS: Empagliflozin 10 MG TAB PO SCH (08:42)
[2023-02-20] MEDS: Carvedilol 6.25 MG TAB PO SCH ×2 (08:42→17:15)
[2023-02-20] MEDS: Furosemide 40 MG TAB PO SCH (08:42)
[2023-02-20] MEDS: Polyethylene Glycol 3350 17 GM Packet PO SCH (08:45)
[2023-02-20] MEDS: Dronedarone HCl 400 MG TAB PO SCH ×2 (08:45→17:15)
[2023-02-20] MEDS: Carbidopa/Levodopa 25-100 mg Tablet PO SCH ×4 (08:45→19:49)
[2023-02-20] MEDS: Senokot S 8.6-50 MG TAB PO SCH ×2 (08:46→19:49)
[2023-02-20] MEDS: Rosuvastatin 20 MG TAB PO SCH (19:48)
[2023-02-20] MEDS: traZODone HCl 50 MG TAB PO PRN (22:42)
[2023-02-21] MEDS: Levothyroxine Sodium 88 MCG TAB PO SCH (05:11)
[2023-02-21] MEDS: Furosemide 40 MG TAB PO SCH (07:44)
[2023-02-21] MEDS: Carvedilol 6.25 MG TAB PO SCH ×2 (07:44→16:54)
[2023-02-21] MEDS: Dronedarone HCl 400 MG TAB PO SCH ×2 (07:45→16:54)
[2023-02-21] MEDS: Pantoprazole 40 MG VIAL IVP SCH (08:05)
[2023-02-21] MEDS: Carbidopa/Levodopa 25-100 mg Tablet PO SCH ×4 (08:05→20:00)
[2023-02-21] MEDS: Alogliptin 6.25 MG TAB PO SCH (08:05)
[2023-02-21] MEDS: Polyethylene Glycol 3350 17 GM Packet PO SCH (08:06)
[2023-02-21] MEDS: Senokot S 8.6-50 MG TAB PO SCH ×2 (08:06→19:23)
[2023-02-21] MEDS: Apixaban 5 MG TAB PO SCH ×2 (08:06→20:00)
[2023-02-21] MEDS: Folic Acid 1 MG TAB PO SCH (08:06)
[2023-02-21] MEDS: Finasteride 5 MG TAB PO SCH (08:06)
[2023-02-21] MEDS: Empagliflozin 10 MG TAB PO SCH (08:06)
[2023-02-21 08:50] LABS: #Basophils 0.1 10x3/uL (0.0-0.2); #Eosinphils 0.1 10x3/uL (0.0-0.5); #Monocytes 0.8 10x3/uL (0.0-1.1); %Basophils 0.4 % (0.0-2.0); %Eosinophils 0.5 % (0.0-6.0); %Lymphocytes 15.6 % (18.0-47.0); %Monocytes 5.6 % (0.0-10.0); %Neutrophils 76.1 % (40.0-75.0); Mean Corpuscular HGB CONC 28.9 g/dL (32.0-36.0); Mean Corpuscular Hemoglobin 27.4 pg (27.0-33.0); Mean Corpuscular Volume 94.5 fl (81.2-95.1); Platelet Count 725 10x3/uL (150-450); RBC Distribution Width 15.9 % (11.5-14.5); Red Blood Cell (RBC) Count 4.02 10x6/uL (4.32-5.72); White Blood Cell (WBC) Count 14.4 10x3/uL (3.5-10.5)
[2023-02-21 08:55] LABS: BUN (Urea Nitrogen) 39 mg/dL (8.4-25.7); Calc. Creatinine Clearance 79 mL/min (70-130); Calcium 9.5 mg/dL (7.8-10.44); Estimated GFR 57; Glucose 197 mg/dL (83-110)
[2023-02-21 09:15] LABS: Anion Gap 19 mmol/L (10-20); Carbon Dioxide 38 mmol/L (23-31); Chloride 91 mmol/L (98-107); Sodium 145 mmol/L (136-145)
[2023-02-21] MEDS ORDERED: Potassium Bicarbonate/Cit Ac 20 MEQ TAB PO SCH (09:30)
[2023-02-21 09:36] LABS: Hypochromia SLIGHT = 6-15 cells (100X) (0-5/hpf); Polychromasia SLIGHT = 2-3 cells (100X) (0-2/hpf)
[2023-02-21 09:37] LABS: Platelet Morphology Comment Appears Increased; Stomatocytes SLIGHT = 2-5 cells (100X) (0-1/hpf)
[2023-02-21] MEDS: HumaLOG 300 UNITS/3 ML VIAL SC PRN (12:42)
[2023-02-21] MEDS: Acetaminophen 650 MG/20.3 ML UDCUP PO PRN (20:01)
[2023-02-21] MEDS: Rosuvastatin 20 MG TAB PO SCH (20:01)
[2023-02-21] MEDS: traZODone HCl 50 MG TAB PO PRN (21:27)
[2023-02-22 04:06] LABS: #Basophils 0.1 10x3/uL (0.0-0.2); #Eosinphils 0.2 10x3/uL (0.0-0.5); #Monocytes 1.2 10x3/uL (0.0-1.1); #Neutrophils 11.7 10x3/uL (1.5-8.4); %Basophils 0.4 % (0.0-2.0); %Eosinophils 1.4 % (0.0-6.0); %Lymphocytes 17.5 % (18.0-47.0); %Monocytes 7.4 % (0.0-10.0); %Neutrophils 71.1 % (40.0-75.0); Hemoglobin 11.7 g/dL (13.5-17.5); Mean Corpuscular HGB CONC 29.8 g/dL (32.0-36.0); Mean Corpuscular Hemoglobin 27.1 pg (27.0-33.0); Mean Platelet Volume 10.4 fl (7.4-10.4); Platelet Count 664 10x3/uL (150-450); RBC Distribution Width 15.8 % (11.5-14.5); Red Blood Cell (RBC) Count 4.31 10x6/uL (4.32-5.72); White Blood Cell (WBC) Count 16.5 10x3/uL (3.5-10.5)
[2023-02-22 04:15] LABS: Anion Gap 19 mmol/L (10-20); BUN (Urea Nitrogen) 39 mg/dL (8.4-25.7); Calc. Creatinine Clearance 82 mL/min (70-130); Calcium 8.9 mg/dL (7.8-10.44); Carbon Dioxide 37 mmol/L (23-31); Chloride 88 mmol/L (98-107); Estimated GFR 60; Glucose 159 mg/dL (83-110); Potassium 3.7 mmol/L (3.5-5.1); Sodium 140 mmol/L (136-145)
[2023-02-22 04:51] LABS: Anisocytosis SLIGHT = 6-15 cells (100X) (0-5/hpf); Microcytosis SLIGHT = 6-15 cells (100X) (0-5/hpf); Tear Drops SLIGHT = 2-5 cells (100X) (0-1/hpf)
[2023-02-22 04:52] LABS: Platelet Morphology Comment Appears Increased
[2023-02-22] MEDS: Furosemide 40 MG TAB PO SCH (06:29)
[2023-02-22] MEDS: Levothyroxine Sodium 88 MCG TAB PO SCH (06:29)
[2023-02-22] MEDS: Carvedilol 6.25 MG TAB PO SCH ×2 (08:04→16:43)
[2023-02-22] MEDS: Carbidopa/Levodopa 25-100 mg Tablet PO SCH ×4 (08:06→22:24)
[2023-02-22] MEDS: Dronedarone HCl 400 MG TAB PO SCH ×2 (08:06→16:43)
[2023-02-22] MEDS: Alogliptin 6.25 MG TAB PO SCH (08:06)
[2023-02-22] MEDS: Senokot S 8.6-50 MG TAB PO SCH ×2 (08:07→22:25)
[2023-02-22] MEDS: Polyethylene Glycol 3350 17 GM Packet PO SCH (08:07)
[2023-02-22] MEDS: Empagliflozin 10 MG TAB PO SCH (08:07)
[2023-02-22] MEDS: Apixaban 5 MG TAB PO SCH ×2 (08:07→22:24)
[2023-02-22] MEDS: Folic Acid 1 MG TAB PO SCH (08:07)
[2023-02-22] MEDS: Finasteride 5 MG TAB PO SCH (08:07)
[2023-02-22] MEDS: HumaLOG 300 UNITS/3 ML VIAL SC PRN ×2 (11:51→16:13)
[2023-02-22] MEDS: Rosuvastatin 20 MG TAB PO SCH (22:24)
[2023-02-23] MEDS: Levothyroxine Sodium 88 MCG TAB PO SCH (06:14)
[2023-02-23] MEDS: Furosemide 40 MG TAB PO SCH (06:47)
[2023-02-23] MEDS: Finasteride 5 MG TAB PO SCH (08:55)
[2023-02-23] MEDS: Alogliptin 6.25 MG TAB PO SCH (08:55)
[2023-02-23] MEDS: Empagliflozin 10 MG TAB PO SCH (08:55)
[2023-02-23] MEDS: Dronedarone HCl 400 MG TAB PO SCH ×2 (08:55→17:53)
[2023-02-23] MEDS: Apixaban 5 MG TAB PO SCH (08:55)
[2023-02-23] MEDS: Folic Acid 1 MG TAB PO SCH (08:55)
[2023-02-23] MEDS: Carbidopa/Levodopa 25-100 mg Tablet PO SCH ×3 (08:56→17:47)
[2023-02-23] MEDS ORDERED: Carvedilol 6.25 MG TAB PO SCH ×2 (09:00→17:00)
[2023-02-23 09:06] LABS: BUN (Urea Nitrogen) 33 mg/dL (8.4-25.7); Calc. Creatinine Clearance 82 mL/min (70-130); Calcium 9.2 mg/dL (7.8-10.44); Estimated GFR 61; Glucose 178 mg/dL (83-110)
[2023-02-23 09:11] VITALS: BMI 34.7
[2023-02-23 09:13] LABS: Anion Gap 19 mmol/L (10-20); Carbon Dioxide 36 mmol/L (23-31); Chloride 89 mmol/L (98-107); Potassium 2.9 mmol/L (3.5-5.1); Sodium 141 mmol/L (136-145)
[2023-02-23] MEDS: HumaLOG 300 UNITS/3 ML VIAL SC PRN (09:16)
[2023-02-23] MEDS: Carvedilol 6.25 MG TAB PO SCH (10:21)
[2023-02-23] MEDS: Senokot S 8.6-50 MG TAB PO SCH (10:36)
[2023-02-23] MEDS: Polyethylene Glycol 3350 17 GM Packet PO SCH (10:36)
[2023-02-23] MEDS: Potassium Chloride 20 MEQ TAB PO SCH ×2 (13:24→18:58)
[2023-02-23 17:17] VITALS: TEMP 96.3
[2023-02-23 17:54] VITALS: BP 118/68
== END 2023-02-23 19:25 | DRG 207 ==
LOC: CSHERS 16:28 → CSHERHOLD 20:13 → CSHICU 02-06 13:40 → CSHTELE 02-22 18:32
PROVIDERS: ADMIT Family Medicine; ATTEND Family Medicine
PROC: 5A09457 Assistance with Respiratory Ventilation, 24-96 Consecutive Hours, Continuous Positive Airway Pressure (ICD-10-PCS; 2023-02-05)
PROC: 02HV33Z Insertion of Infusion Device into Superior Vena Cava, Percutaneous Approach (ICD-10-PCS; principal; 2023-02-06)
PROC: B548ZZA Ultrasonography of Superior Vena Cava, Guidance (ICD-10-PCS; 2023-02-06)
PROC: 3E033XZ Introduction of Vasopressor into Peripheral Vein, Percutaneous Approach (ICD-10-PCS; 2023-02-06)
PROC: 30233J1 Transfusion of Nonautologous Serum Albumin into Peripheral Vein, Percutaneous Approach (ICD-10-PCS; 2023-02-07)
PROC: 5A1955Z Respiratory Ventilation, Greater than 96 Consecutive Hours (ICD-10-PCS; 2023-02-08)
PROC: 0BH17EZ Insertion of Endotracheal Airway into Trachea, Via Natural or Artificial Opening (ICD-10-PCS; 2023-02-08)
PROC: 4A133R1 Monitoring of Arterial Saturation, Peripheral, Percutaneous Approach (ICD-10-PCS; 2023-02-10)
DX: J96.01 Acute respiratory failure with hypoxia (principal); G93.41 Metabolic encephalopathy; I50.33 Acute on chronic diastolic (congestive) heart failure; E87.20 Acidosis, unspecified; N17.9 Acute kidney failure, unspecified; I48.92 Unspecified atrial flutter; R57.9 Shock, unspecified; N39.0 Urinary tract infection, site not specified; J90 Pleural effusion, not elsewhere classified; J98.11 Atelectasis; E87.3 Alkalosis; I13.0 Hypertensive heart and chronic kidney disease with heart failure and stage 1 through stage 4 chronic kidney disease, or unspecified chronic kidney disease; E87.0 Hyperosmolality and hypernatremia; J96.02 Acute respiratory failure with hypercapnia; D63.1 Anemia in chronic kidney disease; E78.5 Hyperlipidemia, unspecified; I25.10 Atherosclerotic heart disease of native coronary artery without angina pectoris; I48.0 Paroxysmal atrial fibrillation; N40.0 Benign prostatic hyperplasia without lower urinary tract symptoms; G20 Parkinson's disease; M19.90 Unspecified osteoarthritis, unspecified site; G47.33 Obstructive sleep apnea (adult) (pediatric); E03.9 Hypothyroidism, unspecified; E77.8 Other disorders of glycoprotein metabolism; D50.9 Iron deficiency anemia, unspecified; N18.2 Chronic kidney disease, stage 2 (mild); E11.22 Type 2 diabetes mellitus with diabetic chronic kidney disease; Z20.822 Contact with and (suspected) exposure to COVID-19; E66.9 Obesity, unspecified; E87.6 Hypokalemia; R13.10 Dysphagia, unspecified; T50.2X5A Adverse effect of carbonic-anhydrase inhibitors, benzothiadiazides and other diuretics, initial encounter; Z79.899 Other long term (current) drug therapy; Z79.84 Long term (current) use of oral hypoglycemic drugs; Z88.8 Allergy status to other drugs, medicaments and biological substances; Z95.1 Presence of aortocoronary bypass graft; Z90.49 Acquired absence of other specified parts of digestive tract; Z98.890 Other specified postprocedural states; Z68.34 Body mass index [BMI] 34.0-34.9, adult
CPT/HCPCS: 36415; 36416; 36600; 70450; 70551; 71045; 71260; 74018; 80048; 80053; 80202; 80400; 81001; 82040; 82533; 82805; 83605; 83735; 83880; 84100; 84132; 84145; 84443; 84484; 85025; 85027; 85046; 85379; 85610; 85730; 86140; 87040; 87070; 87077; 87081; 87086; 87149; 87186; 87205; 87449; 87633; 93005; 93010; 93306; 94002; 94003; 94640; 94660; 94760; 94762; 97139; C9113; J0692; J0696; J0834; J1650; J1815; J1885; J1940; J2060; J2543; J2765; J3370; J3475; J3480; J3486; J3490; J7050; J7070; J7120; J7620; J7999; P9047; Q9967; U0002

== ENCOUNTER 2023-04-03 12:05 | Outpatient (CLI) | payer BC, MEDICARE | END 2023-04-03 12:06 | disposition home or self-care (01) | LOC: CSHWCC 12:05 | PROVIDERS: ATTEND Nurse Practitioner Family | DX: L89.153 Pressure ulcer of sacral region, stage 3 (principal) | CPT/HCPCS: 99203; G0463 ==

== ENCOUNTER 2023-04-17 13:05 | Outpatient (CLI) | payer BC, MEDICARE | END 2023-04-17 13:06 | disposition home or self-care (01) | LOC: CSHWCC 13:05 | PROVIDERS: ATTEND Nurse Practitioner Family | DX: L89.153 Pressure ulcer of sacral region, stage 3 (principal) | CPT/HCPCS: 97597 ==

== ENCOUNTER 2023-05-30 08:32 | Outpatient (CLI) | payer BC, MEDICARE | END 2023-05-30 08:33 | disposition home or self-care (01) | LOC: CSHWCC 08:32 | PROVIDERS: ATTEND Nurse Practitioner Family | DX: L89.153 Pressure ulcer of sacral region, stage 3 (principal) | CPT/HCPCS: 99212; G0463 ==

== ENCOUNTER 2023-07-02 14:57 | Emergency (ER) | payer BC, MEDICARE ==
[2023-07-02 16:04] LABS: #Eosinphils 0.1 10x3/uL (0.0-0.5); #Monocytes 0.8 10x3/uL (0.0-1.1); #Neutrophils 5.3 10x3/uL (1.5-8.4); %Basophils 0.4 % (0.0-2.0); %Eosinophils 0.7 % (0.0-6.0); %Lymphocytes 22.8 % (18.0-47.0); %Monocytes 9.5 % (0.0-10.0); Hemoglobin 14.8 g/dL (13.5-17.5); Mean Corpuscular HGB CONC 30.8 g/dL (32.0-36.0); Mean Corpuscular Hemoglobin 28.8 pg (27.0-33.0); Mean Corpuscular Volume 93.6 fl (81.2-95.1); Mean Platelet Volume 9.8 fl (7.4-10.4); Platelet Count 180 10x3/uL (150-450); RBC Distribution Width 14.7 % (11.5-14.5); Red Blood Cell (RBC) Count 5.13 10x6/uL (4.32-5.72)
[2023-07-02 16:18] LABS: ALT (SGPT) Less than 7 U/L (8-55); AST (SGOT) 17 U/L (5-34); Albumin 3.7 g/dL (3.4-4.8); Alkaline Phosphatase 43 U/L (40-110); Anion Gap 10 mmol/L (10-20); BUN (Urea Nitrogen) 24 mg/dL (8.4-25.7); Bilirubin, Total 0.5 mg/dL (0.2-1.2); Calc. Creatinine Clearance 0 mL/min (70-130); Calcium 8.9 mg/dL (7.8-10.44); Carbon Dioxide 29 mmol/L (23-31); Chloride 107 mmol/L (98-107); Estimated GFR 74; Globulin 2.1 g/dL (2.4-3.5); Glucose 87 mg/dL (83-110); Potassium 4.3 mmol/L (3.5-5.1); Protein, Total 5.8 g/dL (5.8-8.1); Sodium 142 mmol/L (136-145)
[2023-07-02 16:23] LABS: Troponin I Less than 0.010 ng/mL (< 0.028)
[2023-07-02 17:38] LABS: Troponin I 0.013 ng/mL (< 0.028)
== END 2023-07-02 19:00 | disposition home or self-care (01) ==
LOC: CSHERS 14:57
DX: M79.602 Pain in left arm (principal); I12.9 Hypertensive chronic kidney disease with stage 1 through stage 4 chronic kidney disease, or unspecified chronic kidney disease; N18.4 Chronic kidney disease, stage 4 (severe); E11.22 Type 2 diabetes mellitus with diabetic chronic kidney disease
CPT/HCPCS: 71045; 80053; 84484; 85025; 93005

== ENCOUNTER 2024-02-27 14:49 | Emergency (ER) | payer BC, MEDICARE | END 2024-02-27 19:45 | disposition home or self-care (01) | LOC: CSHERS 14:49 | DX: L03.116 Cellulitis of left lower limb (principal); I12.9 Hypertensive chronic kidney disease with stage 1 through stage 4 chronic kidney disease, or unspecified chronic kidney disease; N18.4 Chronic kidney disease, stage 4 (severe); E11.22 Type 2 diabetes mellitus with diabetic chronic kidney disease; Z79.82 Long term (current) use of aspirin; Z79.899 Other long term (current) drug therapy | CPT/HCPCS: 36415; 80053; 83605; 84484; 85025; 86140; 87040; 93005; 96365; 96366; J3370 ==